=== PATIENT | female | born 1965 | race Caucasian/White ===

== ENCOUNTER 2022-08-14 09:33 | Outpatient (OUT) | payer OTHER, SELFPAY ==
--- NOTE | 2022-08-14 09:48 | MM_ITS ---
Patient: KATHLEEN MOSS Exam Date: 08/14/2022 : 1965 Gender:F Ordering : DR JAYDA MARQUEZ M.D. Admission #: [id number] Family : Order #: [id number] CLICK HERE TO VIEW EXAM RADIOLOGY REPORT PROCEDURE: MM TOMOSYNTHESIS SCREENING BI COMPARISON: MG MAMM SCREEN [facility] W CAD, 09/05/2019. MG MAMM SCREEN 3D [place] CAD, 08/10/2021. INDICATIONS: Screening mammogram Z12.31 Calculator Name NCI Breast Cancer Risk Assessment Tool 5 Year Breast Cancer Risk 1.10% Lifetime Breast Cancer Risk 7.10% Personal Breast Cancer No Personal Ovarian Cancer No Treatments None Family Cancers Sister with melanoma cancer at age 53. LOCATION: [facility] BREAST COMPOSITION: Scattered areas fibroglandular density. FINDINGS: DIAGNOSTIC CATEGORY 2--BENIGN FINDING. NO CHANGE FROM COMPARISON. Scattered benign-appearing nodules are present. Scattered benign-appearing calcifications are present. Scattered benign-appearing lymph nodes are present. RIGHT BREAST: No significant suspicious finding. LEFT BREAST: No significant suspicious finding. RECOMMENDATIONS: ROUTINE MAMMOGRAM AND CLINICAL EVALUATION IN 12 MONTHS. PLEASE NOTE: A NORMAL MAMMOGRAM DOES NOT EXCLUDE THE POSSIBILITY OF BREAST CANCER. A CLINICALLY SUSPICIOUS PALPABLE LUMP SHOULD BE BIOPSIED. Dictated by: Ye Fragoso MD on 08/14/2022 at 12:03 Approved by: Ye Fragoso MD on 08/14/2022 at 12:06
== END 2022-08-14 09:34 ==
PROVIDERS: PCP Internal Medicine; Visit Provider Internal Medicine
DX: Z12.31 Encounter for screening mammogram for malignant neoplasm of breast (principal); Z80.8 Family history of malignant neoplasm of other organs or systems
CPT/HCPCS: 77063; 77067

== ENCOUNTER 2023-08-17 09:55 | Outpatient (OUT) | payer OTHER, SELFPAY ==
--- NOTE | 2023-08-17 09:58 | MM_ITS ---
Patient Name: KATHLEEN MOSS MR#: [id number] : 1965 Exam Date: 08/17/2023 Ordering Doctor: DR. JORDON DARLING D.O. RADIOLOGY REPORT PROCEDURE: MM TOMOSYNTHESIS SCREENING BI COMPARISON: MM TOMOSYNTHESIS SCREENING BI, 08/14/2022. MG MAMM SCREEN 3D [place] CAD, 08/10/2021. INDICATIONS: Screening Calculator Name NCI Breast Cancer Risk Assessment Tool 5 Year Breast Cancer Risk 1.20% Lifetime Breast Cancer Risk 6.90% Personal Breast Cancer No Personal Ovarian Cancer No Treatments None Family Cancers Sister with melanoma cancer at age 53. LOCATION: [facility] BREAST COMPOSITION: There are scattered areas of fibroglandular density. FINDINGS: DIAGNOSTIC CATEGORY 1--NEGATIVE. NO CHANGE FROM COMPARISON ASSESSMENT. Scattered benign-appearing nodules are present. Scattered benign-appearing calcifications are present. Scattered benign-appearing lymph nodes are present. RIGHT BREAST: No significant suspicious finding. LEFT BREAST: No significant suspicious finding. RECOMMENDATIONS: ROUTINE MAMMOGRAM AND CLINICAL EVALUATION IN 12 MONTHS. PLEASE NOTE: A NORMAL MAMMOGRAM DOES NOT EXCLUDE THE POSSIBILITY OF BREAST CANCER. A CLINICALLY SUSPICIOUS PALPABLE LUMP SHOULD BE BIOPSIED. Dictated by: Ye Fragoso MD on 08/17/2023 at 12:30 Approved by: Ye Fragoso MD on 08/17/2023 at 12:31
--- OUTSIDE RECORDS SUMMARY | 2023-08-17 10:07 | XMS_ITS | CCD ---
Author Organization [facility] Inform ion Partnership [facility] Care Team Providers Care Mineral Surveying Technician Name Role Phone TYRONE CARREON Unavailable Unavailable TYRONE CARREON Unavailable Unavailable TYRONE CARREON Unavailable Unavailable Diallo Galdamez Unavailable Unavailable Rudolph, Diallo Yanez Unavailable Unavailable Diallo Galdamez Unavailable Unavailable TYRONE CARREON Unavailable Unavailable TYRONE CARREON Primary Care Unavailable SELF, REFERRED Referring Unavailable ADA NÚÑEZ Attending Unavailable ADA NÚÑEZ Admitting Unavailable MAUREEN, DR SPANGLER Admitting Unavailable ALMA, DR MONTELONGO Primary Care Unavailable MAUREEN, DR SPANGLER Attending Unavailable DEMETRIA, DR ANN Garcia Consulting Unavailable MAUREEN, DR SPANGLER Consulting Unavailable ALMA, DR MONTELONGO Primary Care Unavailable ALMA, DR MONTELONGO Admitting Unavailable ALMA, DR MONTELONGO Attending Unavailable ALMA, DR MONTELONGO Consulting Unavailable ZIEBER, DR SALVADOR Xavier Consulting Unavailable ALMA, DR MONTELONGO Primary Care Unavailable RONAL FINLEY Consulting Unavailable TUSHAR, RONAL Admitting Unavailable TUSHAR, RONAL Attending Unavailable RAMON NGO Consulting Unavailable GRACIELA QUEVEDO Attending Unavailable GRACIELA QUEVEDO Attending Unavailable TYRONE CARREON Attending Unavailable GRACIELA QUEVEDO Attending Unavailable Tyrone Carreon MD Primary Care Provider Allergies Allergy Classification Reported Allergen(s) Allergy Type Date of Onset Reaction(s) Facility (2 sources) hydroCHLOROthiazide / Triamterene Drug Allergy 06-15-19 13 [facility] Repository (1 source) Liraglutide -Weight Management Drug Allergy 07-26-19 23 [facility] ffk environment Work Phone: Medications Current Medications Medication Drug Class(es) Dates Sig (Normalized) Sig (Original) ciprofloxacin 250 mg oral tablet (1 source) Quinolone Antimicrobial Start: 04-02-2023 End: 04-07-2023 take 1 tablet by mouth in the morning ciprofloxacin (Cipro) 250 MG tablet Indications: Acute cystitis with hematuria Take 1 tablet (250 mg) by mouth in the morning and 1 tablet (250 mg) before bedtime. Do all this for 5 days. 10 tablet 0 04/02/2023 04/07/2023 Active FLUoxetine 10 mg oral tablet (1 source) Serotonin Reuptake Inhibitor Start: 04-02-2023 End: 04-01-2024 take 1 tablet by mouth in the morning FLUoxetine (PROzac) 10 MG tablet Indications: Depressive disorder (CMS/HCC) Take 1 tablet (10 mg) by mouth in the morning. 30 tablet 11 04/02/2023 04/01/2024 Active nebivolol 5 mg oral tablet (1 source) Start: 12-26-2022 take 1 tablet by mouth in the morning nebivolol (Bystolic) 5 MG tablet Indications: Essential hypertension (CMS/HCC) Take 1 tablet (5 mg) by mouth in the morning. 30 tablet 11 12/26/2022 Active Problems Active Problems Problem Classification Problem Date Documented Date Episodic/Chronic Adjustment disorders (1 source) Adjustment disorder with anxious mood; Translations: [Adjustment disorder with anxiety] Onset: 07-25-2022 07-25-2022 Chronic Coagulation and hemorrhagic disorders (3 sources) Coagulation defect, unspecified; Translations: [Hypercoagulability state] Onset: 03-10-2021 07-25-2022 Chronic Disorders of lipid metabolism (1 source) Mixed hyperlipidemia; Translations: [Mixed hyperlipidemia] Onset: 07-25-2022 07-25-2022 Chronic Epilepsy; convulsions (1 source) Seizure disorder; Translations: [Epilepsy, unspecified, not intractable, without status epilepticus] Onset: 01-03-2023 01-03-2023 Chronic Esophageal disorders (1 source) Esophageal dysmotility; Translations: [Dyskinesia of esophagus] Onset: 07-25-2022 07-25-2022 Chronic Essential hypertension (1 source) Essential hypertension; Translations: [Essential (primary) hypertension] Onset: 07-25-2022 07-25-2022 Chronic Fluid and electrolyte disorders (1 source) Dehydration; Translations: [DEHYDRATION] Onset: 01-03-2022 Episodic Headache; including migraine (1 source) Migraine; Translations: [Migraine, unspecified, not intractable, without status migrainosus] Onset: 07-25-2022 07-25-2022 Chronic Menopausal disorders (1 source) Atrophic vaginitis; Translations: [Postmenopausal atrophic vaginitis] Onset: 07-25-2022 07-25-2022 Chronic Mood disorders (3 sources) Depressive disorder; Translations: [Depressive disorder (CMS/HCC)] Onset: 07-25-2022 04-02-2023 Chronic Other aftercare (1 source) Other detention (current) drug therapy; Translations: [OTH INFRASTRUCTURE ARCHITECT CURRENT DRUG THERAPY] Onset: 01-03-2022 Episodic Other nervous system disorders (1 source) Disorder of autonomic nervous system; Translations: [Disorder of the autonomic nervous system, unspecified] Onset: 07-25-2022 07-25-2022 Chronic Other nervous system disorders (1 source) Disorder of parasympathetic nervous system; Translations: [Disorder of the autonomic nervous system, unspecified] Onset: 07-25-2022 07-25-2022 Chronic Other nutritional; endocrine; and metabolic disorders (1 source) Obese class I; Translations: [Obesity, unspecified] Onset: 07-25-2022 07-25-2022 Chronic Residual codes; unclassified (3 sources) Disorientation, unspecified; Translations: [DISORIENTATION UNSPECIFIED] Onset: 12-31-2021 Episodic Residual codes; unclassified (1 source) Altered mental status, unspecified; Translations: [ALTERED MENTAL STATUS UNSPECIFIED] Onset: 01-03-2022 Episodic Retinal detachments; defects; vascular occlusion; and retinopathy (1 source) Retinal hemorrhage; Translations: [Retinal hemorrhage, unspecified eye] Onset: 07-25-2022 07-25-2022 Chronic Systemic lupus erythematosus and connective tissue disorders (1 source) Systemic lupus erythematosus; Translations: [Systemic lupus erythematosus, unspecified] Onset: 07-25-2022 07-25-2022 Chronic Transient cerebral ischemia (1 source) Transient cerebral ischemia; Translations: [Transient cerebral ischemic attack, unspecified] Onset: 07-25-2022 07-25-2022 Chronic Unclassified (1 source) CONTACT W/AND (SUSP) EXPOS COVID-19; Translations: [CONTACT W/AND (SUSP) EXPOS COVID-19] Onset: 03-10-2021 Urinary tract infections (1 source) Acute cystitis; Translations: [Acute cystitis with hematuria] 04-02-2023 Episodic Past or Other Problems Problem Classification Problem Date Documented Da te Episodic/Chronic Abdominal pain (1 source) Unspecified abdominal pain; Translations: [UNSPECIFIED ABDOMINAL PAIN] Onset: 03-10-2021 Episodic Coagulation and hemorrhagic disorders (1 source) Spontaneous ecchymoses; Translations: [SPONTANEOUS ECCHYMOSES] Onset: 03-10-2021 Episodic Conditions associated with dizziness or vertigo (1 source) Dizziness and giddiness; Translations: [DIZZINESS AND GIDDINESS] Onset: 03-10-2021 Episodic Diabetes mellitus without complication (1 source) Abnormal glucose tolerance test; Translations: [Other abnormal glucose] Onset: 07-25-2022 07-25-2022 Episodic Other aftercare (1 source) continuous churn buttermaker (current) use of anticoagulants; Translations: [INFRASTRUCTURE ARCHITECT CURRNT USE ANTICOAGULANTS] Onset: 03-10-2021 Episodic Other connective tissue disease (1 source) Muscle pain; Translations: [Myalgia, unspecified site] Onset: 07-25-2022 07-25-2022 Episodic Other nervous system disorders (1 source) White matter disease; Translations: [White matter disease, unspecified] Onset: 07-25-2022 07-25-2022 Episodic Other screening for suspected conditions (not mental disorders or infectious disease) (8 sources) Encounter for screening mammogram for malignant neoplasm of breast; Translations: [Abnormal coagulation profile] Onset: 03-08-2021 Episodic Residual codes; unclassified (1 source) Family history of malignant neoplasm of other organs or systems; Translations: [FAM HX MALIG NEOPLASM OTH ORGN/SYS] Onset: 08-11-2021 Episodic Residual codes; unclassified (1 source) Insomnia; Translations: [Insomnia, unspecified] Onset: 07-25-2022 07-25-2022 Episodic Residual codes; unclassified (1 source) Temporary loss of memory; Translations: [Other amnesia] Onset: 07-25-2022 07-25-2022 Episodic Residual codes; unclassified (1 source) Transient alteration of awareness; Translations: [Transient alteration of awareness] Onset: 07-25-2022 07-25-2022 Episodic Syncope (1 source) Syncope and collapse; Translations: [Syncope and collapse] Onset: 07-25-2022 07-25-2022 Episodic Results Test Name Value Interpretation Reference Range Facility Urinalysis macro (dipstick) panel (U)on 04-02-2023 Bilirubin, UA Negative Negative - 4(70) +++ mg/dL [facility] Blood, UA Positive Negative - 50 Kelvin/mcL [facility] Glucose, UA Negative Negative - 1999(110) ++++ mg/dL [facility] Ketones, UA Negative Negative - 160(16) ++++ mg/dL [facility] Leukocytes, UA Moderate Negative - 500+++ Vladislav/mcL [facility] Nitrite, UA Negative Negative - Positive [facility] pH, UA 5.0 5 - 9 [facility] e Protein, UA Negative Negative - 1999(20) ++++ mg/dL [facility] Spec Grav, UA 1.030 1 - 1.03 [facility] Urobilinogen, UA 0.2 0.2 - 12 mg/dL [facility] e CBC AUTO DIFFon 12-31-2021 BASO # 0.1 103/ul Normal 0.0-0.1 [facility] Comment on above: Performed By: #### C BC ####[facility] [address] [place], [place] [address]Dr. Che Caal Basophils/100 WBC (Bld) 0.9 % Normal 0.2-2.0 [facility] Comment on above: Performed By: #### C BC ####[facility] [address] [place], [place] [address]Dr. Che Caal EO # 0.1 103/ul Normal 0.0-0.7 [facility] Comment on above: Performed By: #### C BC ####[facility] [address] [place], [place] [address]Dr. Che Caal Eosinophils/100 WBC (Bld) 1.6 % Normal 0.9-7.0 [facility] Comment on above: Performed By: #### C BC ####[facility] [address] [place], [place] [address]Dr. Che Caal Erythrocyte distribution width (RBC) [Ratio] 13.3 % Normal 11.0-15.0 [facility] Comment on above: Performed By: #### C BC ####[facility] [address] [address]Dr. Che Caal Hematocrit (Bld) [Volume fraction] 40.4 % Normal 36.0-48.0 [facility] Comment on above: Performed By: #### C BC ####[facility] [address] [address]Dr. Che Caal Hemoglobin (Bld) [Mass/Vol] 13.1 g/dL Normal 12.0-16.0 [facility] Comment on above: Performed By: #### C BC ####[facility] [address] [place], [place] [address]Dr. Che Caal IG # 0.07 10e3/ul Critically high 0.00-0.03 [facility] Comment on above: Performed By: #### C BC ####[facility] [address] [place], [place] [address]Dr. Che Caal IG % 0.9 % Critically high 0.0-0.5 [facility] Comment on above: Performed By: #### C BC ####[facility] [address] [place], [place] [address]Dr. Nickisterling Caal LYMPH # 2.5 103/ul Normal 1.2-3.8 [facility] Comment on above: Performed By: #### C BC ####[facility] [address] [place], [place] [address]Dr. Che Caal Lymphocytes/100 WBC (Bld) 31.5 % Normal 20.5-60.0 [facility] Comment on above: Performed By: #### C BC ####[facility] [address] [place], [place] [address]Dr. Nickisterling Caal MANUAL DIFF REQ NO Normal [facility] Comment on above: Performed By: #### C BC ####[facility] [address] [place], [place] [address]Dr. Che Caal MCH (RBC) [Entitic mass] 27.2 pg Normal 26.7-34.0 [facility] Comment on above: Performed By: #### C BC ####[facility] [address] [place] [id number]. Che Ten MCHC (RBC) [Mass/Vol] 32.4 g/dL Normal 29.9-35.2 [facility] Comment on above: Performed By: #### C BC ####[facility] [address] [place] [id number]. Che Caal MCV (RBC) [Entitic vol] 84.0 fL Normal 81.0-99.0 [facility] Comment on above: Performed By: #### C BC ####[facility] [address] [place], [place] [address]Dr. Che Caal MONO # 0.7 103/ul Normal 0.3-0.8 [facility] Comment on above: Performed By: #### C BC ####[facility] [address] [place], [place] [address]Dr. Che Cala Monocytes/100 WBC (Bld) 8.3 % Normal 1.7-12.0 [facility] Comment on above: Performed By: #### C BC ####[facility] [address] [place], [place] [address]Dr. Che Caal NEUT # 4.6 103/ul Normal 1.4-6.5 [facility] Comment on above: Performed By: #### C BC ####[facility] [address] [place], [place] [address]Dr. Che Caal Neutrophils/100 WBC (Bld) 56.8 % Normal 43.0-75.0 [facility] Comment on above: Performed By: #### C BC ####[facility] [address] [place], [place] [address]Dr. Che Caal Platelet mean volume (Bld) [Entitic vol] 9.5 fL Normal 9.5-13.5 [facility] Comment on above: Performed By: #### C BC ####[facility] [address] [place], [place] [address]Dr. Che Caal PLT 125 103/ul Critically low 150-450 [facility] Comment on above: Performed By: #### C BC ####[facility] [address] [place], [place] [address]Jg. Che Caal RBC 4.81 106/ul Normal 4.20-5.40 [facility] Comment on above: Performed By: #### C BC ####[facility] [address] [place], [place] [address]Xq. Che Caal WBC 8.1 103/ul Normal 4.0-11.0 [facility] Comment on above: Performed By: #### C BC ####[facility] [address] [place], [place] [address]Pm[address] Ca[address] CT STROKE HEAD WOon 01-01-[address] STROKE HEAD WO CT HEAD WITHOUT CONTRAST. INDICATION: Slurred speech. Stroke. COMPARISON: None available for comparison TECHNIQUE: Axial CT head images from the skull base to the vertex without IV contrast were acquired. Coronal and sagittal reformats were also obtained. FINDINGS: EXTRA-AXIAL SPACE: Age-appropriate ventricles. No acute extra-axial collection. No extra-axial mass. No midline shift. CEREBRUM: There are areas of periventricular and deep white matter low-attenuation, which is nonspecific but likely reflective of chronic microvascular ischemic disease.. Chronic lacunar infarct in the caudate head. There is right temporal lobe encephalomalacia. No CT evidence of acute large territorial cortical infarct, hemorrhage or mass effect. CEREBELLUM: No focal abnormality. No CT evidence of acute infarct, hemorrhage or mass effect. BRAINSTEM: No focal abnormality. No CT evidence of acute infarct, hemorrhage or mass effect. EXTRACRANIAL STRUCTURES. The paranasal sinuses are clear. Mastoid air cells are clear. Orbits are unremarkable. No discrete pituitary mass. Intact calvarium. IMPRESSION: No CT evidence of acute territorial cortical infarct, hemorrhage or mass effect. Electronically authenticated by: RAMON NGO Date: 2021-12-31 12:59 Normal [facility] CTA HEAD WO W CONon 01-01-20 22 CTA HEAD WO W CON CTA HEAD/NECK. HISTORY: Slurred speech COMPARISON: None. TECHNIQUE: CT angiogram of the head and neck obtained after administration of 75 mL of nonionic intravenous contrast material, Isovue-300. Multiplanar and volume rendered 3-D reformats were created. NASCET criteria was used for evaluation of luminal stenosis. Approximately 100 ml Omnipaque 350 was administered intravenously. 3-D vascular images were constructed on a separate workstation. FINDINGS: THORACIC AORTA: Normal. There is a normal anatomy at the origin of the great vessels. RIGHT COMMON CAROTID ARTERY: No significant stenosis. There is medialization RIGHT EXTERNAL CAROTID ARTERY: No significant stenosis. RIGHT INTERNAL CAROTID ARTERY: No significant stenosis. LEFT COMMON CAROTID ARTERY: No significant stenosis. There is medialization LEFT EXTERNAL CAROTID ARTERY: No significant stenosis. LEFT INTERNAL CAROTID ARTERY: No significant stenosis. RIGHT VERTEBRAL ARTERY: No significant stenosis. LEFT VERTEBRAL ARTERY: No significant stenosis. NIKOLSKI OF [place]: The bilateral intracranial internal carotid arteries, anterior cerebral arteries, middle cerebral arteries and anterior and posterior communicating arteries are normal. POSTERIOR INTRACRANIAL CIRCULATION: The basilar artery and posterior cerebral arteries are patent, without stenosis or occlusion. DURAL SINUSES: Patent. No intracranial aneurysm measuring least 2 mm identified. No intracranial AVM. LUNG APICES: The lung apices are clear. SOFT TISSUES: The prevertebral soft tissues are normal. No soft tissue inflammation. OSSEOUS STRUCTURES: No acute osseous abnormality throughout the imaged axial skeleton and skull base. IMPRESSION: No high-grade or hemodynamically flow-limiting stenosis of the major arteries of the head and neck. Electronically authenticated by: RAMON NGO Date: 2021-12-31 13:52 Normal [facility] DRUG SCREEN RAPID (URINE)on 12-31-2021 AMP Negative Normal NEGATIVE [facility] Comment on above: Performed By: #### D DOTTY MORENO ERUR #### [facility] [address] [address] [address] Che Caal BAR Negative Normal NEGATIVE [facility] Comment on above: Performed By: #### D DOTTY MORENO ERUR #### [facility] [address] [id number] [address] Che Caal BUP Negative Normal NEGATIVE [facility] Comment on above: Performed By: #### D DOTTY MORENO ERUR #### [facility] [id number] Che Caal BZO Negative Normal NEGATIVE [facility] Comment on above: Performed By: #### D DOTTY MORENO ERUR #### [facility] [address] [address] [address] Che Caal KOLBY Negative Normal NEGATIVE [facility] Comment on above: Performed By: #### D DOTTY MORENO, ERUR #### [facility] [address] [address] [address] Che Caal CUT-OFFS SEE BELOW Normal [facility] Comment on above: Result Comment: AMP (Amphetamine): 500ng/mL, BAR (Barbituates): 200 ng/mL, BZO (Benzodiazepines): 150 ng/mL, BUP (Buprenorphine): 10 ng/mL, KOLBY (Cocaine): 150 ng/mL, mAMP (Methamphetamine): 500 ng/mL, MTD (Methadone): 200 ng/mL, OPI (Opiates): 100 ng/mL, OXY (Oxycodone): 100 ng/mL, PCP (Phencyclidine): 25 ng/mL, PPX (Propoxyphene): 300 ng/mL, THC (Cannabinoids): 50 ng/mL, TCA (Trycyclic Antidepressants): 300 ng/mL Performed By: #### D DOTTY MORENO, ERUR #### [facility] [address] [address] [address] Che Caal DRUG CUT HEADER DRUG CLASS TEST SYSTEM CUT-OFF CONCENTRATIONS ARE FOLLOWS: Normal [facility] Comment on above: Performed By: #### D DOTTY MORENO, ERUR #### [facility] [address] [address] [address] Che Caal mAMP Negative Normal NEGATIVE [facility] Comment on above: Performed By: #### D DOTTY MORENO, ERUR #### [facility] [address] [address] [address] Che Caal MTD Negative Normal NEGATIVE [facility] Comment on above: Performed By: #### D DOTTY MORENO, ERUR #### [facility] [address] [address] [address] Che Caal OPI Negative Normal NEGATIVE [facility] Comment on above: Performed By: #### D DOTTY MORENO, ERUR #### [facility] [address] [address] [address] Che Caal OXY Negative Normal NEGATIVE [facility] Comment on above: Performed By: #### D DOTTY MORENO, ERUR #### [facility] [address] [place] [address] Dr. Che Caal PCP Negative Normal NEGATIVE [facility] Comment on above: Performed By: #### D DTOTY MORENO, ERUR #### [facility] [address] [address] [address] Che Caal PPX Negative Normal NEGATIVE [facility] Comment on above: Performed By: #### D DOTTY MORENO, ERUR #### [facility] [address] [place] [address] Dr. Che Caal TCA Negative Normal NEGATIVE [facility] Comment on above: Performed By: #### D DOTTY MORENO, ERUR #### [facility] [address] [place] [address] Dr. Che Caal THC Negative Normal NEGATIVE [facility] Comment on above: Performed By: #### D DOTTY MORENO, ERUR #### [facility] [address] [place] [address] Dr. Che Caal ER URINE PROFILEon 2 Bilirubin Ql (U) Negative Normal NEGATIVE [facility] Comment on above: Performed By: #### D DOTTY MORENO, ERUR #### [facility] [address] [place] [address] Dr. Che Caal Clarity (U) CLEAR Normal CLEAR [facility] Comment on above: Performed By: #### D DOTTY MORENO, ERUR #### [facility] [address] [place] [address] Dr. Che Caal Color (U) LT. YELLOW Normal YELLOW [facility] Comment on above: Performed By: #### D DOTTY MORENO, ERUR #### [facility] [address] [place] [address] Dr. Che CALDWELLAHD A micrscopic examination will be performed if indicated. Normal [facility] Comment on above: Performed By: #### D DOTTY MORENO, ERUR #### [facility] [address] [address] [address] Che Caal Glucose Ql (U) Negative Normal NEGATIVE [facility] Comment on above: Performed By: #### D DOTTY MORENO, ERUR #### [facility] [address] [address] [address] Che Caal Hemoglobin Ql (U) TRACE-INTACT Abnormal NEGATIVE [facility] Comment on above: Performed By: #### D DOTTY MORENO, ERUR #### [facility] [address] [address] [address] Che Caal Ketones Ql (U) Negative Normal NEGATIVE [facility] Comment on above: Performed By: #### D DOTTY MORENO, ERUR #### [facility] [address] [address] [address] Che Caal LEUKOCYTES Negative Normal NEGATIVE [facility] Comment on above: Performed By: #### D DOTTY MORENO, ERUR #### [facility] [address] [address] [address] Che Caal Nitrite Ql (U) Negative Normal NEGATIVE [facility] Comment on above: Performed By: #### D DOTTY MORENO, ERUR #### [facility] [address] [address] [address] Che Caal pH (U) 6.0 [pH] Normal 5-9 [facility] Comment on above: Performed By: #### D DOTTY MORENO, ERUR #### [facility] [address] [address] [address] Che Caal SPEC GRAVITY <=1.005 Abnormal 1.005-<=1.025 [facility] Comment on above: Performed By: #### D DOTTY MORENO, ERUR #### [facility] [address] [address] [address] Che Caal UA PROTEIN Negative Normal NEGATIVE/ TRACE [facility] Comment on above: Performed By: #### D DOTTY MORENO, ERUR #### [facility] [address] [place] [address] Dr. Che Caal UR MICRO IND INDICATED Normal [facility] Comment on above: Performed By: #### D DOTTY MORENO, ERUR #### [facility] [address] [place] [address] Dr. Che Caal Urobilinogen Qn (U) 0.2 {Nato'U}/dL Normal 0.2 - 1. 0 [facility] Comment on above: Performed By: #### D DOTTY MORENO, ERUR #### [facility] [address] [place] [address] Dr. Che Caal POINT OF CARE GLUCOSEon Glucose [Mass/Vol] 121 mg/dL Critically high 74-106 [facility] Comment on above: Performed By: #### P OCGLUC #### [facility] [address] [place] [address] Dr. Che Caal PROF 14(COMP METB)on 022 Albumin [Mass/Vol] 3.5 g/dL Normal 3.4-5.0 [facility] Comment on above: Performed By: #### H STROMAGGY, CMP #### [facility] [address] [place] [address] Dr. Che Caal Albumin/Globulin [Mass ratio] 0.8 {ratio} Normal [facility] Comment on above: Performed By: #### H STROPN, CMP #### [facility] [address] [place] [address] Dr. Che Caal ALP [Catalytic activity/Vol] 70 U/L Normal 46-116 [facility] Comment on above: Performed By: #### H STROPN, CMP #### [facility] [address] [place] [address] Dr. Che Caal ALT [Catalytic activity/Vol] 18 U/L Normal 14-59 [facility] Comment on above: Performed By: #### H STROPN, CMP #### [facility] [address] [address] [address] Che Caal Anion gap [Moles/Vol] 10.9 mmol/L Normal [facility] Comment on above: Performed By: #### H STROPN, CMP #### [facility] [address] [address] [address] Che Caal AST [Catalytic activity/Vol] 16 U/L Normal 15-37 [facility] Comment on above: Performed By: #### H STROPN, CMP #### [facility] [address] [address] [address] Che Caal Bilirubin [Mass/Vol] 0.7 mg/dL Normal 0.2-1.0 [facility] Comment on above: Performed By: #### H STROPN, CMP #### [facility] [address] [address] [address] Che Caal Calcium [Mass/Vol] 9.0 mg/dL Normal 8.5-10.1 [facility] Comment on above: Performed By: #### H STROPN, CMP #### [facility] [address] [address] [address] Che Caal Chloride [Moles/Vol] 102 mmol/L Normal 98-107 [facility] Comment on above: Performed By: #### H STROPN, CMP #### [facility] [address] [address] [address] Che Caal CO2 [Moles/Vol] 29.2 mmol/L Normal 21.0-32.0 [facility] Comment on above: Performed By: #### H STROPN, CMP #### [facility] [address] [address] [address] Che Caal Creatinine [Mass/Vol] 1.36 mg/dL Critically high 0.55-1.02 [facility] Comment on above: Performed By: #### H STROPN, CMP #### [facility] [address] [address] [address] Che Caal EGFR-AF [place]IZEN [place] 49 mL/min/1.73m2 Critically low >=60 [facility] Comment on above: Performed By: #### H STROPN, CMP #### [facility] [address] [address] [address] Che Caal EGFR-NON AF [place]IZEN [place] 40 mL/min/1.73m2 Critically low >=60 [facility] Comment on above: Performed By: #### H STROPN, CMP #### [facility] [address] [address] [address] Che aCal Globulin (S) [Mass/Vol] 4.2 g/dL Normal [facility] Comment on above: Performed By: #### H STROPN, CMP #### [facility] [address] [address] [address] Che Caal Glucose [Mass/Vol] 113 mg/dL Critically high 74-106 [facility] Comment on above: Performed By: #### H STROPN, CMP #### [facility] [address] [place] [address] Dr. Che Caal Potassium [Moles/Vol] 4.1 mmol/L Normal 3.5-5.1 [facility] Comment on above: Performed By: #### H STROPN, CMP #### [facility] [address] [place] [address] Dr. Che Caal Protein [Mass/Vol] 7.7 g/dL Normal 6.4-8.2 [facility] Comment on above: Performed By: #### H STROPN, CMP #### [facility] [address] [place] [address] Dr. Che Caal Sodium [Moles/Vol] 138 mmol/L Normal 136-145 [facility] Comment on above: Performed By: #### H STROPN, CMP #### [facility] [address] [place] [address] Dr. Che Caal Urea nitrogen [Mass/Vol] 27.0 mg/dL Critically high 7.0-18.0 [facility] Comment on above: Performed By: #### H STROPN, CMP #### [facility] [address] [place] [address] Dr. Che Caal Urea nitrogen/Creatinine [Mass ratio] 19.9 mg/mg Normal [facility] Comment on above: Performed By: #### H MARCIAPN, CMP #### [facility] [address] [address] [address] Che Caal PROTIMEon 12-31-2021 INR Coag (PPP) [Relative time] 1.00 {INR} Normal [facility] Comment on above: Performed By: #### P TT, PT ####[facility] [address] [address]Dr[address] Che Caal INR GUIDELINES SEE BELOW Normal [facility] Comment on above: Result Comment: BERNICE RED INR: 2.0 - 3.0 CONDITIONS NOT LISTED BELOW 2.5 - 3.5 FOR PROSTHETIC HEART VALVE REPLACEMENT 2.5 - 3.5 RECURRENT THROMBOSIS Performed By: #### P TT, PT ####[facility] [address] [address] Che Caal PT Coag (PPP) [Time] 10.8 s Normal 9.0-11.6 [facility] Comment on above: Performed By: #### P TT, PT ####[facility] [address] [address] Che Caal PTTon 12-31-2021 aPTT Coag (Bld) [Time] 28.7 s Normal 22.3-36.2 [facility] Comment on above: Performed By: #### P TT, PT ####[facility] [address] [address] Che Caal TROPONIN, HIGH SENSITIVITYon 12-31-2021 HSTROP 25.3 pg/mL Normal 4.0-51.3 [facility] Comment on above: Result Comment: CUT- OFF POINTS HAVE BEEN ESTABLISHED BASED ON THE FOURTH UNIVERSAL DEFINITIONS OF MYOCARDIAL INFARCTION. THE UPPER REFERENCE LIMIT (URL) OF TROPONIN, DEFINED THE 99TH PERCENTILE OF cTnI DISTRIBUTION IN A REFERENCE POPULATION, HAS BEEN CONFIRMED THE DECISION THRESHOLD FOR [place] DIAGNOSIS. Performed By: #### H STROPN, CMP #### [facility] [address] [address] [address] Che Caal URINE MICROSCOPIC ONLYon BACTERIA NONE SEEN Normal NONE SEEN [facility] Comment on above: Performed By: #### D DOTTY MORENO, ERUR #### [facility] [address] [address] [address] Che Caal Bacteria identified Cx Nom (U) NOT INDICATED Normal [facility] Comment on above: Performed By: #### D DOTTY MORENO, ERUR #### [facility] [address] [address] [address] Che Caal CAST NONE SEEN Normal NONE SEEN [facility] Comment on above: Performed By: #### D DOTTY MORENO, ERUR #### [facility] [address] [place] [address] Dr. Che Caal Crystals LM Nom (Urine sed) NONE SEEN Normal NONE SEEN [facility] Comment on above: Performed By: #### D DOTTY MORENO, ERUR #### [facility] [address] [address] [address] Che Caal Epithelial cells LM Ql (Urine sed) FEW Abnormal NONE SEEN /RARE [facility] Comment on above: Performed By: #### D DOTTY MORENO, ERUR #### [facility] [address] [address] [address] Che Caal MUCOUS NONE SEEN Normal NONE SEEN [facility] Comment on above: Performed By: #### D DOTTY MORENO, ERUR #### [facility] [address] [address] [address] Che Caal RBC 2-5 Abnormal 0-2 [facility] Comment on above: Performed By: #### D DOTTY MORENO, ERUR #### [facility] [address] [address] [address] Che Caal WBC NONE SEEN Normal NONE SEEN [facility] Comment on above: Performed By: #### D DOTTY MORENO, ERUR #### [facility] [address] [address] [address] Che Caal XR CHEST 1 Von 12-31-2021 XR CHEST 1 V PORTABLE CHEST X-RAY . INDICATION: Slurred speech. COMPARISON: None. TECHNIQUE: Single AP portable chest radiograph. FINDINGS: TUBES AND LINES: None. LUNGS: Lungs are clear. PLEURA: No effusions or pneumothorax. HEART AND MEDIASTINUM: Within normal limits for portable technique. OSSEOUS STRUCTURES: No acute abnormality. IMPRESSION: No acute findings. Electronically authenticated by: RAMON NGO Date: 2021-12-31 13:14 Normal [facility] MG MAMM SCREEN 3D KIMBERLY CADon 08-10-2021 MG MAMM SCREEN 3D KIMBERLY CAD Patient: TRACIE MOSS Exam Date: 08/10/2021 : 1965 Gender:F Ordering : DR TYRONE CARREON M.D. Admission #: [id number] Family : Order #: [id number] CLICK HERE TO VIEW EXAM RADIOLOGY REPORT PROCEDURE: MAMMOGRAM SCREENING 3D BILATERAL CAD COMPARISON: MG MAMM SCREEN KIMBERLY W CAD, 09/05/2019. MG MAMM SCREEN KIMBERLY W CAD, 07/26/2018. INDICATIONS: Screening mammography Calculator Name NCI Breast Cancer Risk Assessment Tool 5 Year Breast Cancer Risk 1.10% Lifetime Breast Cancer Risk 7.20% Personal Breast Cancer No Personal Ovarian Cancer No Treatments None Family Cancers Sister with melanoma cancer at age 53. LOCATION: [facility] BREAST COMPOSITION: Scattered areas fibroglandular density. FINDINGS: DIAGNOSTIC CATEGORY 2--BENIGN FINDING: RIGHT BREAST: No significant suspicious finding. Scattered benign-appearing lymph nodes are present. No significant change has occurred. LEFT BREAST: No significant suspicious finding. Scattered benign-appearing lymph nodes are present. No significant change has occurred. RECOMMENDATIONS: ROUTINE MAMMOGRAM AND CLINICAL EVALUATION IN 12 MONTHS. PLEASE NOTE: A NORMAL MAMMOGRAM DOES NOT EXCLUDE THE POSSIBILITY OF BREAST CANCER. A CLINICALLY SUSPICIOUS PALPABLE LUMP SHOULD BE BIOPSIED. Dictated by: Salvador Antonio M.D. on 08/10/2021 at 11:56 Approved by: Salvador Antonio M.D. on 08/10/2021 at 12:00 Normal [facility] Hemoglobin A1Con 05-12-2021 EAG 105.41 Normal [facility] [employer] Comment on above: Performed By: #### A 1C #### [facility] [address], [place] [id number] HbA1c (Bld) [Mass fraction] 5.3 % Normal 4.0-6.0 [facility] Comment on above: Performed By: #### A 1C #### [facility] [address], [place] [id number] Microalbumin (with Creat)on 05-12-2021 mALB 18.7 mg/dL Normal [facility] Comment on above: Result Comment: mALB reference range not established. Performed By: #### m ALBC #### [facility] [address], [place] [id number] mALB/Creat Ratio 87.0 MCG/MG Normal [facility] Comment on above: Result Comment: The ADA (Diabetes Care 26:S94-S98, 2002) defines abnormalities in Albumin excretion as follows: Category Result (MCG/MG Creatinine) Normal <30 Microalbuminuria 30-299 Clinical Albuminuria > or = 300 Performed By: #### m ALBC #### [facility] [address], [place] [id number] UCREA 215 mg/dL Normal 28-217 [facility] Comment on above: Performed By: #### m ALBC #### [facility] [address], [place] [id number] Complete Blood Counton 04-14 Erythrocyte distribution width (RBC) [Ratio] 15.0 % Normal 11.0-15.0 [facility] Comment on above: Performed By: #### C BC, CMP #### [facility] [address], [place] [id number] Hematocrit (Bld) [Volume fraction] 34.0 % Low 35.0-47.0 [facility] Comment on above: Performed By: #### C BC, CMP #### [facility] [address], [place] [id number] Hemoglobin (Bld) [Mass/Vol] 10.7 g/dL Low 11.6-15.5 [facility] Comment on above: Performed By: #### C BC, CMP #### [facility] [address], [place] [id number] MCH (RBC) [Entitic mass] 27.6 pg Normal 27.0-33.0 [facility] Comment on above: Performed By: #### C BC, CMP #### [facility] [address], [place] [id number] MCHC (RBC) [Mass/Vol] 31.5 g/dL Low 32.0-36.0 [facility] Comment on above: Performed By: #### C BC, CMP #### [facility] [address], [place] [id number] MCV (RBC) [Entitic vol] 88 fL Normal 80-100 [facility] Comment on above: Performed By: #### C BC, CMP #### [facility] [address], [place] [id number] Platelet mean volume (Bld) [Entitic vol] 10.40 fL Normal 7.50-12.50 [facility] Comment on above: Performed By: #### C BC, CMP #### [facility] [address], [place] [id number] Platelets (Bld) [#/Vol] 143 10*3/uL Normal 140-400 [facility] Comment on above: Performed By: #### C BC, CMP #### [facility] [address], [place] [id number] RBC (Bld) [#/Vol] 3.88 10*6/uL Low 3.90-5.20 [facility] Comment on above: Performed By: #### C BC, CMP #### [facility] [address], [place] [id number] RDW-SD 47.5 fL Normal 37.0-50.0 [facility] Comment on above: Performed By: #### C BC, CMP #### [facility] [address], [place] [id number] WBC (Bld) [#/Vol] 5.7 10*3/uL Normal 3.8-11.0 [facility] Comment on above: Performed By: #### C BC, CMP #### [facility] [address], [place] [id number] Comprehensive Metabolic Pane ahsley 04-14-2021 Albumin [Mass/Vol] 3.9 g/dL Normal 3.6-5.1 [facility] [place] [employer] Comment on above: Performed By: #### C BC, CMP #### [facility] [address] [facility] [place] [place] [id number] Albumin/Globulin [Mass ratio] 1.4 {ratio} Normal 1.0-2.5 [facility] [employer] Comment on above: Performed By: #### C BC, CMP #### [facility] [address] [place], [place] [id number] ALP [Catalytic activity/Vol] 65 U/L Normal 35-119 [facility] [employer] Comment on above: Performed By: #### C BC, CMP #### [facility] [address] [id number] ALT [Catalytic activity/Vol] 15 U/L Normal 6-33 [facility] [employer] Comment on above: Result Comment: 01/26 Female reference range changed. Performed By: #### C BC, CMP #### [facility] [address] [facility] [place] [id number] Anion gap [Moles/Vol] 17 mmol/L Normal 12-20 [facility] [employer] Comment on above: Result Comment: Effe ctive 03/03/2019 reference range changed. Performed By: #### C BC, CMP #### [facility] [address] [facility] [place] [place] [id number] AST [Catalytic activity/Vol] 20 U/L Normal 9-34 [facility] Comment on above: Performed By: #### C BC, CMP #### [facility] [address] [facility] [place] [place] [id number] Bilirubin [Mass/Vol] 0.54 mg/dL Normal 0.30-1.20 [facility] [employer] Comment on above: Performed By: #### C BC, CMP #### [facility] [address] [place], [place] [id number] BUN/CREA 25 Ratio High 6-22 [facility] [employer] Comment on above: Performed By: #### C BC, CMP #### [facility] [address] [place] [id number] Calcium [Mass/Vol] 9.4 mg/dL Normal 8.6-10.2 [place] [employer] Comment on above: Performed By: #### C BC, CMP #### [facility] [address], [place] [id number] Chloride [Moles/Vol] 105 mmol/L Normal 98-107 [facility] Comment on above: Performed By: #### C BC, CMP #### [facility] [address], [place] [id number] CO2 [Moles/Vol] 23 mmol/L Normal 20-31 [facility] Comment on above: Performed By: #### C BC, CMP #### [facility] [address], [place] [id number] Creatinine [Mass/Vol] 1.0 mg/dL Normal 0.6-1.4 [facility] Comment on above: Performed By: #### C BC, CMP #### [facility] [address], [place] [id number] eGFRAA 71 mL/min/1.73m2 Normal >60 [facility] Comment on above: Performed By: #### C BC, CMP #### [facility] [address], [place] [id number] eGFRNAA 59 mL/min/1.73m2 Low >60 [facility] Comment on above: Performed By: #### C BC, CMP #### [facility] [address], [place] [id number] Globulin (S) [Mass/Vol] 2.8 g/dL Normal 1.9-3.7 [facility] Comment on above: Performed By: #### C BC, CMP #### [facility] [address], [place] [id number] Glucose [Mass/Vol] 90 mg/dL Normal 65-99 [facility] Comment on above: Result Comment: For FASTING Glucose --- ADA reference ranges: Normal 65-99 mg/dl Prediabetes 100-125 Diabetes >/= 126 Performed By: #### C BC, CMP #### [facility] [address], [place] [id number] Potassium [Moles/Vol] 4.5 mmol/L Normal 3.5-5.5 [facility] Comment on above: Performed By: #### C BC, CMP #### [facility] [address], [place] [id number] Protein [Mass/Vol] 6.7 g/dL Normal 6.1-8.1 [facility] [employer] Comment on above: Performed By: #### C BC, CMP #### [facility] [address], [place] [id number] Sodium [Moles/Vol] 141 mmol/L Normal 135-146 [facility] [employer] Comment on above: Performed By: #### C BC, CMP #### [facility] [address], [place] [id number] Urea nitrogen [Mass/Vol] 25 mg/dL Normal 7-25 [facility] [employer] Comment on above: Performed By: #### C BC, CMP #### [facility] [address], [place] [id number] Complete Blood Counton 03-23 Erythrocyte distribution width (RBC) [Ratio] 14.8 % Normal 11.0-15.0 [facility] [employer] Comment on above: Performed By: #### T SH reflex FT4, CMP, CBC #### [facility] [address], [place] [id number] Hematocrit (Bld) [Volume fraction] 34.0 % Low 35.0-47.0 [facility] [employer] Comment on above: Performed By: #### T SH reflex FT4, CMP, CBC #### [facility] [address], [place] [id number] Hemoglobin (Bld) [Mass/Vol] 10.5 g/dL Low 11.6-15.5 [facility] [employer] Comment on above: Performed By: #### T SH reflex FT4, CMP, CBC #### [facility] [address], [place] [id number] MCH (RBC) [Entitic mass] 26.6 pg Low 27.0-33.0 [facility] [employer] Comment on above: Performed By: #### T SH reflex FT4, CMP, CBC #### [facility] [address], [place] [id number] MCHC (RBC) [Mass/Vol] 30.9 g/dL Low 32.0-36.0 [facility] [employer] Comment on above: Performed By: #### T SH reflex FT4, CMP, CBC #### [facility] [address], [place] [id number] MCV (RBC) [Entitic vol] 86 fL Normal 80-100 [facility] Comment on above: Performed By: #### T SH reflex FT4, CMP, CBC #### [facility] [address], [place] [id number] Platelet mean volume (Bld) [Entitic vol] 8.70 fL Normal 7.50-12.50 [facility] Comment on above: Performed By: #### T SH reflex FT4, CMP, CBC #### [facility] [address], [place] [id number] Platelets (Bld) [#/Vol] 257 10*3/uL Normal 140-400 [facility] [employer] Comment on above: Performed By: #### T SH reflex FT4, CMP, CBC #### [facility] [address], [place] [id number] RBC (Bld) [#/Vol] 3.95 10*6/uL Normal 3.90-5.20 [facility] [employer] Comment on above: Performed By: #### T SH reflex FT4, CMP, CBC #### [facility] [address], [place] [id number] RDW-SD 46.8 fL Normal 37.0-50.0 [facility] [employer] Comment on above: Performed By: #### T SH reflex FT4, CMP, CBC #### [facility] [address], [place] [id number] WBC (Bld) [#/Vol] 7.8 10*3/uL Normal 3.8-11.0 [facility] [employer] Comment on above: Performed By: #### T SH reflex FT4, CMP, CBC #### [facility] [address], [place] [id number] Comprehensive Metabolic Pane [facility] 03-23-2021 Albumin [Mass/Vol] 4.1 g/dL Normal 3.6-5.[address] [facility] [employer] Comment on above: Performed By: #### T SH reflex FT4, CMP, CBC #### [facility] [address], [place] [id number] Albumin/Globulin [Mass ratio] 1.2 {ratio} Normal 1.0-2.5 [facility] Comment on above: Performed By: #### T SH reflex FT4, CMP, CBC #### [facility] [address], [place] [id number] ALP [Catalytic activity/Vol] 84 U/L Normal 35-119 [facility] Comment on above: Performed By: #### T SH reflex FT4, CMP, CBC #### [facility] [address], [place] [id number] ALT [Catalytic activity/Vol] 17 U/L Normal 6-33 [facility] Comment on above: Result Comment: 01/26 Female reference range changed. Performed By: #### T SH reflex FT4, CMP, CBC #### [facility] [address], [place] [id number] Anion gap [Moles/Vol] 20 mmol/L Normal 12-20 [facility] Comment on above: Result Comment: Effe ctive 03/03/2019 reference range changed. Performed By: #### T SH reflex FT4, CMP, CBC #### [facility] [address], [place] [id number] AST [Catalytic activity/Vol] 20 U/L Normal 9-34 [facility] Comment on above: Performed By: #### T SH reflex FT4, CMP, CBC #### [facility] [address], [place] [id number] Bilirubin [Mass/Vol] 0.69 mg/dL Normal 0.30-1.20 [facility] Comment on above: Performed By: #### T SH reflex FT4, CMP, CBC #### [facility] [address], [place] [id number] BUN/CREA 23 Ratio High 6-22 [facility] Comment on above: Performed By: #### T SH reflex FT4, CMP, CBC #### [facility] [address], [place] [id number] Calcium [Mass/Vol] 9.8 mg/dL Normal 8.6-10.2 [facility] [place] [employer] Comment on above: Performed By: #### T SH reflex FT4, CMP, CBC #### [facility] [address], [place] [id number] Chloride [Moles/Vol] 104 mmol/L Normal 98-107 [facility] Comment on above: Performed By: #### T SH reflex FT4, CMP, CBC #### [facility] [address], [place] [id number] CO2 [Moles/Vol] 21 mmol/L Normal 20-31 [facility] [employer] Comment on above: Performed By: #### T SH reflex FT4, CMP, CBC #### [facility] [address], [place] [id number] Creatinine [Mass/Vol] 1.5 mg/dL High 0.6-1.4 [facility] [employer] Comment on above: Performed By: #### T SH reflex FT4, CMP, CBC #### [facility] [address], [place] [id number] eGFRAA 44 mL/min/1.73m2 Low >60 [facility] [employer] Comment on above: Performed By: #### T SH reflex FT4, CMP, CBC #### [facility] [address], [place] [id number] eGFRNAA 36 mL/min/1.73m2 Low >60 [facility] [employer] Comment on above: Performed By: #### T SH reflex FT4, CMP, CBC #### [facility] [address], [place] [id number] Globulin (S) [Mass/Vol] 3.5 g/dL Normal 1.9-3.7 [facility] [employer] Comment on above: Performed By: #### T SH reflex FT4, CMP, CBC #### [facility] [address], [place] [id number] Glucose [Mass/Vol] 102 mg/dL High 65-99 [facility] [employer] Comment on above: Result Comment: For FASTING Glucose --- ADA reference ranges: Normal 65-99 mg/dl Prediabetes 100-125 Diabetes >/= 126 Performed By: #### T SH reflex FT4, CMP, CBC #### [facility] [address], [place] [id number] Potassium [Moles/Vol] 4.4 mmol/L Normal 3.5-5.5 [facility] Comment on above: Performed By: #### T SH reflex FT4, CMP, CBC #### [facility] [address], [place] [id number] Protein [Mass/Vol] 7.6 g/dL Normal 6.1-8.1 [facility] Comment on above: Performed By: #### T SH reflex FT4, CMP, CBC #### [facility] [address], [place] [id number] Sodium [Moles/Vol] 140 mmol/L Normal 135-146 Sarah rn [place] [employer] Comment on above: Performed By: #### T SH reflex FT4, CMP, CBC #### [facility] [address], [place] [id number] Urea nitrogen [Mass/Vol] 35 mg/dL High 7-25 [facility] Comment on above: Performed By: #### T SH reflex FT4, CMP, CBC #### [facility] [address], [place] [id number] TSH w/ Reflex to Free T4on 0 03-23-2021 TSH 3.150 uIU/mL Normal 0.400-4.500 [facility] [employer] Comment on above: Performed By: #### T SH reflex FT4, CMP, CBC #### [facility] [address], [place] [id number] BASIC METABOLIC PANELon 02-26 Calcium [Mass/Vol] 7.8 mg/dL Low 8.6-10.3 [facility] Comment on above: Order Comment: No: D o not add to previous draw Performed By: #### 4 999, 55993, 13731 #### [facility] [address] [facility] [place] [place] [address], [facility] Chloride [Moles/Vol] 102 mmol/L Normal 98-107 [facility] Comment on above: Order Comment: No: D o not add to previous draw Performed By: #### 4 1000, 61027, 62534 #### [facility] [address] [place] [address], [place] CO2 [Moles/Vol] 31 mmol/L Normal 21-31 [facility] Comment on above: Order Comment: No: D o not add to previous draw Performed By: #### 4 1000, 78172, 62720 #### [facility] [address] [place] [address], [place] Creatinine [Mass/Vol] 0.73 mg/dL Normal 0.60-1.20 [facility] Comment on above: Order Comment: No: D o not add to previous draw Performed By: #### 4 1000, 81469, 22455 #### [facility] [address] [place] [address], [place] GFR/1.73 sq M.predicted among blacks MDRD (S/P/Bld) [Vol rate/Area] mL/min/{1.73_m2} Normal >60 [facility] Comment on above: Order Comment: No: D o not add to previous draw Performed By: #### 4 1000, 87793, 57677 #### [facility] [address] [place] [address], [place] GFR/1.73 sq M.predicted among non-blacks MDRD (S/P/Bld) [Vol rate/Area] mL/min/{1.73_m2} Normal >60 [facility] Comment on above: Order Comment: No: D o not add to previous draw Performed By: #### 4 1000, 33938, 61610 #### [facility] [address] [place] [address], [place] Glucose [Mass/Vol] 99 mg/dL Normal 70-100 [facility] Comment on above: Order Comment: No: D o not add to previous draw Performed By: #### 4 1000, 13845, 23193 #### [facility] [address] [place] [address], [place] Potassium [Moles/Vol] 4.5 mmol/L Normal 3.5-5.1 [facility] Comment on above: Order Comment: No: D o not add to previous draw Performed By: #### 4 1000, 77523, [id number] #### [facility] [address] [place] [address], [place] Sodium [Moles/Vol] 137 mmol/L Normal 136-145 [facility] Comment on above: Order Comment: No: D o not add to previous draw Performed By: #### 4 1000, 45633, 48764 #### [facility] [address] [place] [address], [place] Urea nitrogen [Mass/Vol] 16 mg/dL Normal 7-25 [facility] Comment on above: Order Comment: No: D o not add to previous draw Performed By: #### 4 1000, 41437, [id number] #### [facility] [address] [place] [address], [facility] CBC COMPLETE BLOOD COUNTon 0 - Erythrocyte distribution width (RBC) [Ratio] 15.3 % High 11.5-15.0 [facility] Comment on above: Order Comment: No: D o not add to previous draw Performed By: #### 5 0103 #### [facility] [address] [place] [address], [place] Hematocrit (Bld) [Volume fraction] 26.6 % Low 36.0-45.0 [facility] Comment on above: Order Comment: No: D o not add to previous draw Performed By: #### 5 0103 #### [facility] [address] [place] [address], [place] Hemoglobin (Bld) [Mass/Vol] 8.4 g/dL Low 12.0-15.0 [facility] Comment on above: Order Comment: No: D o not add to previous draw Performed By: #### 5 0103 #### [facility] [address] [place] [address], [place] MCH (RBC) [Entitic mass] 27.4 pg Normal 27.0-33.0 [facility] Comment on above: Order Comment: No: D o not add to previous draw Performed By: #### 5 0103 #### [facility] [address] [place] [id number], [facility] MCHC (RBC) [Mass/Vol] 31.6 g/dL Low 32.0-35.0 [facility] Comment on above: Order Comment: No: D o not add to previous draw Performed By: #### 5 0103 #### [facility] [address] [place] [id number], [facility] MCV (RBC) [Entitic vol] 86.6 fL Normal 82.0-98.0 [facility] Comment on above: Order Comment: No: D o not add to previous draw Performed By: #### 5 0103 #### [facility] [address] [place] [address], [facility] Nucleated RBC/100 WBC (Bld) [Ratio] 0 % Normal 0-0 [facility] Comment on above: Order Comment: No: D o not add to previous draw Performed By: #### 5 0103 #### [facility] [address] [place] [id number], [place] PLAT CNT 288 10*3/uL Normal 150-400 [facility] Comment on above: Order Comment: No: D o not add to previous draw Performed By: #### 5 0103 #### [facility] [address] [place] [id number], [facility] RBC (Bld) [#/Vol] 3.07 10*6/uL Low 3.80-5.00 [facility] Comment on above: Order Comment: No: D o not add to previous draw Performed By: #### 5 0103 #### [facility] [address] [place] [id number], [facility] WBC (Bld) [#/Vol] 8.41 10*3/uL Normal 4.00-10.60 [facility] Comment on above: Order Comment: No: D o not add to previous draw Performed By: #### 5 0103 #### [facility] [address] [place] [address], [facility] HEMOGLOBINon 03-10-2021 Hemoglobin (Bld) [Mass/Vol] 8.5 g/dL Low 12.0-15.0 [facility] Comment on above: Order Comment: No: D o not add to previous draw Performed By: #### 9 2089 #### [facility] [address] [place] [address], [facility] Hemoglobin (Bld) [Mass/Vol] 8.1 g/dL Low 12.0-15.0 [facility] Comment on above: Order Comment: No: D o not add to previous draw Performed By: #### 5 0103 #### [facility] [address] [place] [address], [facility] MAGNESIUM BLOODon 03-10-2021 Magnesium [Mass/Vol] 2.0 mg/dL Normal 1.9-2.7 [facility] Comment on above: Order Comment: No: D o not add to previous draw Performed By: #### 4 1000, 17473, 98940 #### [facility] [address] [facility] [place] [address], [facility] PHOSPHORUS BLOODon 2 Phosphate [Mass/Vol] 2.9 mg/dL Normal 2.5-5.0 [facility] Comment on above: Order Comment: No: D o not add to previous draw Performed By: #### 5 0103 #### [facility] [address] [place] [address], [facility] PROTHROMBIN TIMEon 2 INR Coag (PPP) [Relative time] 1.18 {INR} High 0.91-1.16 [facility] Comment on above: Order Comment: No: D o not add to previous draw Result Comment: ACCC P RECOMMENDED INR FOR WARFARIN THERAPY ------ ------- CONDITION INR PROPHYLAXIS OF VENOUS THROMBOSIS 2-3 (HIGH-RISK SURGERY) TREATMENT OF VENOUS THROMBOSIS 2-3 TREATMENT OF PULMONARY EMBOLISM 2-3 PREVENTION OF SYSTEMIC EMBOLISM: 2-3 ACUTE MYOCARDIAL INFARCTION TISSUE HEART VALVES VALVULAR HEART DISEASE ATRIAL FIBRILLATION RECURRENT SYSTEMIC EMBOLISM MECHANICAL HEART VALVE 2.5-3.5 FROM: ORAL ANTICOAGULANTS. MECHANISM OF ACTION, CLINICAL EFFECTIVENESS, AND OPTIMAL THERAPEUTIC RANGE. CHEST 1995;108:231S-246S. Performed By: #### 5 6101 #### [facility] [address] PT Coag (PPP) [Time] 15.0 s High 12.3-14.8 [facility] Comment on above: Order Comment: No: D o not add to previous draw Result Comment: ALL RESULTS MUST BE INTERPRETED WITH RESPECT TO BLOOD DRAWING ARTIFACT OR DILUTION ERROR OF ANTICOAGULANT AT THE TIME OF SAMPLING. Performed By: #### 5 6101 #### [facility] [address] APTTon 03-09-2021 aPTT Coag (Bld) [Time] 39.5 s High 25.0-35.0 [facility] Comment on above: Order Comment: No: D o not add to previous draw Result Comment: ALL RESULTS MUST BE INTERPRETED WITH RESPECT TO BLOOD DRAWING ARTIFACT OR DILUTION ERROR OF ANTICOAGULANT AT THE TIME OF SAMPLING. THE APTT SHOULD NOT BE USED TO MONITOR UNFRACTIONATED HEPARIN THERAPY, THIS LABORATORY NO LONGER HAS AN ESTABLISHED THERAPEUTIC RANGE BASED ON THE APTT. IT IS RECOMMENDED THAT THE UFH - HEPARIN ASSAY (ANTI-XA ACTIVITY) BE USED FOR THIS PURPOSE. Performed By: #### 5 6101, [id number] #### [facility] [address] [place] [address], [facility] aPTT Coag (Bld) [Time] 39.3 s High 25.0-35.0 [facility] Comment on above: Order Comment: No: D o not add to previous draw Result Comment: ALL RESULTS MUST BE INTERPRETED WITH RESPECT TO BLOOD DRAWING ARTIFACT OR DILUTION ERROR OF ANTICOAGULANT AT THE TIME OF SAMPLING. THE APTT SHOULD NOT BE USED TO MONITOR UNFRACTIONATED HEPARIN THERAPY, THIS LABORATORY NO LONGER HAS AN ESTABLISHED THERAPEUTIC RANGE BASED ON THE APTT. IT IS RECOMMENDED THAT THE UFH - HEPARIN ASSAY (ANTI-XA ACTIVITY) BE USED FOR THIS PURPOSE. Performed By: #### 5 7307, 47917 #### [facility] [address] BASIC METABOLIC PANELon 02-26 Calcium [Mass/Vol] 8.1 mg/dL Low 8.6-10.3 [facility] Comment on above: Order Comment: No: D o not add to previous draw Performed By: #### 5 0103 #### [facility] [address] [place] [address], [facility] Chloride [Moles/Vol] 102 mmol/L Normal 98-107 [facility] Comment on above: Order Comment: No: D o not add to previous draw Performed By: #### 5 0103 #### [facility] [address] [place] [id number], [facility] CO2 [Moles/Vol] 28 mmol/L Normal 21-31 The [facility] Comment on above: Order Comment: No: D o not add to previous draw Performed By: #### 5 0103 #### [facility] [address] [place] [id number], [facility] Creatinine [Mass/Vol] 0.79 mg/dL Normal 0.60-1.20 [facility] Comment on above: Order Comment: No: D o not add to previous draw Performed By: #### 5 0103 #### [facility] [address] [place] [address], [place] GFR/1.73 sq M.predicted among blacks MDRD (S/P/Bld) [Vol rate/Area] mL/min/{1.73_m2} Normal >60 [facility] Comment on above: Order Comment: No: D o not add to previous draw Performed By: #### 5 0103 #### [facility] [address] [place] [address], [place] GFR/1.73 sq M.predicted among non-blacks MDRD (S/P/Bld) [Vol rate/Area] mL/min/{1.73_m2} Normal >60 [facility] Comment on above: Order Comment: No: D o not add to previous draw Performed By: #### 5 0103 #### [facility] [address] [place] [address], [place] Glucose [Mass/Vol] 95 mg/dL Normal 70-100 [facility] Comment on above: Order Comment: No: D o not add to previous draw Performed By: #### 5 0103 #### [facility] [address] [place] [address], [place] Potassium [Moles/Vol] 4.4 mmol/L Normal 3.5-5.1 [facility] Comment on above: Order Comment: No: D o not add to previous draw Performed By: #### 5 0103 #### [facility] [address] [place] [address], [place] Sodium [Moles/Vol] 136 mmol/L Normal 136-145 [facility] Comment on above: Order Comment: No: D o not add to previous draw Performed By: #### 5 0103 #### [facility] [address] [place] [address], [place] Urea nitrogen [Mass/Vol] 22 mg/dL Normal 7-25 [facility] Comment on above: Order Comment: No: D o not add to previous draw Performed By: #### 5 0103 #### [facility] [address] [place] [address], [facility] CBC W/DIFFon 03-09-2021 ABS IMM GRANS 0.5 10*3/uL High 0.0-0.2 The [facility] Comment on above: Performed By: #### 5 0103 #### [facility] [address] [place] [address], [facility] ABS NEUTROPHILS 6.4 10*3/uL Normal 1.6-7.6 The [facility] Comment on above: Performed By: #### 5 0103 #### [facility] [address] [place] [address], [facility] Basophils (Bld) [#/Vol] 0.1 10*3/uL Normal 0.0-0.2 [facility] Comment on above: Performed By: #### 5 0103 #### [facility] [address] [place] [address], [facility] Basophils/100 WBC (Bld) 0.8 % Normal 0.0-1.0 [facility] Comment on above: Performed By: #### 5 0103 #### [facility] [address] [facility] [place] [address], [facility] Eosinophils (Bld) [#/Vol] 0.2 10*3/uL Normal 0.0-0.5 [facility] Comment on above: Performed By: #### 5 0103 #### [facility] [address] [facility] [place] [place] [address], [facility] Eosinophils/100 WBC (Bld) 1.8 % Normal 0.0-6.0 [facility] Comment on above: Performed By: #### 5 0103 #### [facility] [address] [facility]. [address] Erythrocyte distribution width (RBC) [Ratio] 15.4 % High 11.5-15.0 [facility] Comment on above: Performed By: #### 5 0103 #### [facility] [address] [facility] [place] [address], [facility] Hematocrit (Bld) [Volume fraction] 27.3 % Low 36.0-45.0 [facility] Comment on above: Performed By: #### 5 0103 #### [facility] [address] [facility]. [address] Hemoglobin (Bld) [Mass/Vol] 8.7 g/dL Low 12.0-15.0 [facility] Comment on above: Performed By: #### 5 0103 #### [facility] [address] [facility] [place] [address], [facility] IMM PLATELET FRAC 2.1 % Normal 0.8-6.3 [facility] Comment on above: Performed By: #### 5 0103 #### [facility] [address] [facility]. [address] IMMATURE GRANS 4.5 % High 0.0-1.0 The [facility] Comment on above: Performed By: #### 5 0103 #### [facility] [address] [facility] [place] [address], [facility] Lymphocytes (Bld) [#/Vol] 2.1 10*3/uL Normal 1.2-4.0 [facility] Comment on above: Performed By: #### 5 0103 #### [facility] [address] [facility] [place] [address], [facility] Lymphocytes/100 WBC (Bld) 19.8 % Low 20.0-45.0 [facility] Comment on above: Performed By: #### 5 0103 #### [facility] [address] [facility] [place] [address], [facility] MCH (RBC) [Entitic mass] 27.1 pg Normal 27.0-33.0 [facility] Comment on above: Performed By: #### 5 0103 #### [facility] [address] [facility]. [address] MCHC (RBC) [Mass/Vol] 31.9 g/dL Low 32.0-35.0 [facility] Comment on above: Performed By: #### 5 0103 #### [facility] [address] [facility] [place] [address], [facility] MCV (RBC) [Entitic vol] 85.0 fL Normal 82.0-98.0 [facility] Comment on above: Performed By: #### 5 0103 #### [facility] [address] [facility] [place] [address], [facility] Monocytes (Bld) [#/Vol] 1.2 10*3/uL High 0.1-1.0 [facility] Comment on above: Performed By: #### 5 0103 #### [facility] [address] [facility] [place] [address], [facility] MONOS 11.3 % Normal 5.0-12.0 [facility] Comment on above: Performed By: #### 5 0103 #### [facility] [address] [facility]. [address] Neutrophils/100 WBC (Bld) 61.8 % Normal 40.0-72.0 [facility] Comment on above: Performed By: #### 5 0103 #### [facility] [address] [facility] [place] [address], [facility] Nucleated RBC/100 WBC (Bld) [Ratio] 0 % Normal 0-0 [facility] Comment on above: Performed By: #### 5 3 #### [facility] [address] [place] [address], [facility] PLAT CNT 284 10*3/uL Normal 150-400 The [facility] Comment on above: Performed By: #### 5 3 #### [facility] [address] [place] [address], [facility] RBC (Bld) [#/Vol] 3.21 10*6/uL Low 3.80-5.00 [facility] Comment on above: Performed By: #### 5 3 #### [facility] [address] [place] [address], [place] WBC (Bld) [#/Vol] 10.36 10*3/uL Normal 4.00-10.60 [facility] Comment on above: Performed By: #### 5 0103 #### [facility] [address] [place] [id number], [place] ABS NEUTROPHILS 8.3 10*3/uL High 1.6-7.6 The [facility] Comment on above: Order Comment: No: D o not add to previous draw Performed By: #### 5 0103 #### [facility] [address] [place] [id number], [place] Basophils (Bld) [#/Vol] 0.1 10*3/uL Normal 0.0-0.2 [facility] Comment on above: Order Comment: No: D o not add to previous draw Performed By: #### 5 3 #### [facility] [address] [place] [id number], [place] Basophils/100 WBC (Bld) 0.9 % Normal 0.0-1.0 [facility] Comment on above: Order Comment: No: D o not add to previous draw Performed By: #### 5 0103 #### [facility] [address] [facility] [place] [address], [place] Eosinophils (Bld) [#/Vol] 0.1 10*3/uL Normal 0.0-0.5 [facility] Comment on above: Order Comment: No: D o not add to previous draw Performed By: #### 5 3 #### [facility] [address] [place] [address], [facility] Eosinophils/100 WBC (Bld) 0.9 % Normal 0.0-6.0 [facility] Comment on above: Order Comment: No: D o not add to previous draw Performed By: #### 5 0103 #### [facility] [address] [place] [address], [place] Erythrocyte distribution width (RBC) [Ratio] 15.4 % High 11.5-15.0 [facility] Comment on above: Order Comment: No: D o not add to previous draw Performed By: #### 5 0103 #### [facility] [address] [place] [address], [facility] GIANT PLATELETS Present Normal The [facility] Comment on above: Order Comment: No: D o not add to previous draw Performed By: #### 5 0103 #### [facility] [address] [place] [address], [facility] Hematocrit (Bld) [Volume fraction] 27.9 % Low 36.0-45.0 [facility] Comment on above: Order Comment: No: D o not add to previous draw Performed By: #### 5 0103 #### [facility] [address] [place] [address], [facility] Hemoglobin (Bld) [Mass/Vol] 9.0 g/dL Low 12.0-15.0 [facility] Comment on above: Order Comment: No: D o not add to previous draw Performed By: #### 5 0103 #### [facility] [address] [place] [address], [facility] Lymphocytes (Bld) [#/Vol] 2.3 10*3/uL Normal 1.2-4.0 [facility] Comment on above: Order Comment: No: D o not add to previous draw Performed By: #### 5 0103 #### [facility] [address] [place] [address], [facility] Lymphocytes/100 WBC (Bld) 19.8 % Low 20.0-45.0 [facility] Comment on above: Order Comment: No: D o not add to previous draw Performed By: #### 5 0103 #### [facility] [address] [place] [address], [facility] MCH (RBC) [Entitic mass] 27.6 pg Normal 27.0-33.0 [facility] Comment on above: Order Comment: No: D o not add to previous draw Performed By: #### 5 0103 #### [facility] [address] [facility] [place] [address], [facility] MCHC (RBC) [Mass/Vol] 32.3 g/dL Normal 32.0-35.0 [facility] Comment on above: Order Comment: No: D o not add to previous draw Performed By: #### 5 0103 #### [facility] [address] [place] [id number], [facility] MCV (RBC) [Entitic vol] 85.6 fL Normal 82.0-98.0 [facility] Comment on above: Order Comment: No: D o not add to previous draw Performed By: #### 5 0103 #### [facility] [address] [facility] [place] [address], [facility] Monocytes (Bld) [#/Vol] 0.6 10*3/uL Normal 0.1-1.0 [facility] Comment on above: Order Comment: No: D o not add to previous draw Performed By: #### 5 0103 #### [facility] [address] [facility] [place] [address], [facility] MONOS 5.4 % Normal 5.0-12.0 [facility] Comment on above: Order Comment: No: D o not add to previous draw Performed By: #### 5 0103 #### [facility] [address] [facility] [place] [place] [address], [facility] MYELOS 0.9 % High 0.0-0.0 [facility] Comment on above: Order Comment: No: D o not add to previous draw Performed By: #### 5 0103 #### [facility] [address] [place] [address], [facility] Neutrophils/100 WBC (Bld) 72.1 % High 40.0-72.0 [facility] Comment on above: Order Comment: No: D o not add to previous draw Performed By: #### 5 0103 #### [facility] [address] [place] [id number], [facility] Nucleated RBC/100 WBC (Bld) [Ratio] 0 % Normal 0-0 [facility] Comment on above: Order Comment: No: D o not add to previous draw Performed By: #### 5 0103 #### [facility] [address] [facility] [place] [address], [facility] PLAT CNT 284 10*3/uL Normal 150-400 [facility] Comment on above: Order Comment: No: D o not add to previous draw Performed By: #### 5 0103 #### [facility] [address] [facility] [place] [id number], [facility] RBC (Bld) [#/Vol] 3.26 10*6/uL Low 3.80-5.00 [facility] Comment on above: Order Comment: No: D o not add to previous draw Performed By: #### 5 0103 #### [facility] [address] [place] [address], [place] WBC (Bld) [#/Vol] 11.56 10*3/uL High 4.00-10.60 [facility] Comment on above: Order Comment: No: D o not add to previous draw Performed By: #### 5 0103 #### [facility] [address] [place] [address], [place] HEMATOCRITon 03-09-2021 Hematocrit (Bld) [Volume fraction] 28.4 % Low 36.0-45.0 [facility] Comment on above: Order Comment: No: D o not add to previous draw Performed By: #### 5 0103 #### [facility] [address] [place] [address], [facility] HEMOGLOBINon 03-09-2021 Hemoglobin (Bld) [Mass/Vol] 8.8 g/dL Low 12.0-15.0 [facility] Comment on above: Order Comment: No: D o not add to previous draw Performed By: #### 5 0103 #### [facility] [address] [place] [id number], [facility] Hemoglobin (Bld) [Mass/Vol] 9.2 g/dL Low 12.0-15.0 [facility] Comment on above: Order Comment: No: D o not add to previous draw Performed By: #### 5 0103 #### [facility] [address] [place] [address], [facility] LIVER BATTERYon 03-09-2021 Albumin [Mass/Vol] 3.1 g/dL Low 3.5-5.7 [facility] Comment on above: Order Comment: No: D o not add to previous draw Performed By: #### 5 0103 #### [facility] [address] [place] [address], [facility] ALKALINE PHOSPH 44 IU/L Normal 34-104 [facility] Comment on above: Order Comment: No: D o not add to previous draw Performed By: #### 5 0103 #### [facility] [address] [place] [address], [facility] ALT [Catalytic activity/Vol] 12 U/L Normal 7-52 [facility] Comment on above: Order Comment: No: D o not add to previous draw Performed By: #### [id number] #### [facility] [address] [place] [address], [facility] AST [Catalytic activity/Vol] 15 U/L Normal 13-39 [facility] Comment on above: Order Comment: No: D o not add to previous draw Performed By: #### [id number] #### [facility] [address] [place] [address], [place] Bilirubin [Mass/Vol] 1.6 mg/dL High 0.3-1.0 [facility] Comment on above: Order Comment: No: D o not add to previous draw Performed By: #### 5 [id number] #### [facility] [address] [place] [address], [facility] Bilirubin.direct [Mass/Vol] 0.3 mg/dL High 0.0-0.2 [facility] Comment on above: Order Comment: No: D o not add to previous draw Performed By: #### 5 0103 #### [facility] [address] [place] [address], [facility] Protein [Mass/Vol] 5.6 g/dL Low 6.0-8.3 [facility] Comment on above: Order Comment: No: D o not add to previous draw Performed By: #### 5 0103 #### [facility] [address] [place] [address], [facility] MAGNESIUM BLOODon 03-09-2021 Magnesium [Mass/Vol] 1.8 mg/dL Low 1.9-2.7 [facility] Comment on above: Order Comment: No: D o not add to previous draw Performed By: #### 5 0103 #### [facility] [address] [place] [address], [facility] PHOSPHORUS BLOODon Phosphate [Mass/Vol] 3.3 mg/dL Normal 2.5-5.0 [facility] Comment on above: Order Comment: No: D o not add to previous draw Performed By: #### 5 0103 #### [facility] [address] [place] [address] PORTABLE CHEST 1 VIEWon 02-26 PORTABLE CHEST 1 VIEW [facility] Department of Radiology [address] [place] [id number] Patient Name: TRACIE MOSS : 1965 Sex: F Age: Race: White Pt. Location: [id number] Patient Status: I Ordered Date: 03/09/2021 6:45:00 PM Completed Date: 03/09/2021 09:03 PM Requesting Provider: MICHAEL EDGAR Attending Provider: ADA NÚÑEZ Report Copy To: Signs & Symptoms: Shortness of Breath History: Comments: evaluate for Pneumonia Exam: PORTABLE CHEST 1 VIEW PORTABLE CHEST 1 VIEW CLINICAL INFORMATION: shortness of breath and cough. Shortness of Breath. IMPRESSION: Single view of the chest with no comparison. Bibasilar airspace opacifications right greater than left which could relate to atelectasis, pneumonia, or aspiration. No effusions. Normal cardiomediastinal silhouette. Calcified mediastinal lymph nodes. Electronically signed: Mahi Champion. Transcribed by: [email or web address], User Resident: Electronically Signed by: MAHI CHAMPION @ 03/09/2021 09:10 PM Normal [facility] Comment on above: Order Comment: No: D o not add to previous draw PROTHROMBIN TIMEon INR Coag (PPP) [Relative time] 1.19 {INR} High 0.91-1.16 [facility] Comment on above: Order Comment: No: D o not add to previous draw Result Comment: [facility] P RECOMMENDED INR FOR WARFARIN THERAPY ------ ------- CONDITION INR PROPHYLAXIS OF VENOUS THROMBOSIS 2-3 (HIGH-RISK SURGERY) TREATMENT OF VENOUS THROMBOSIS 2-3 TREATMENT OF PULMONARY EMBOLISM 2-3 PREVENTION OF SYSTEMIC EMBOLISM: 2-3 ACUTE MYOCARDIAL INFARCTION TISSUE HEART VALVES VALVULAR HEART DISEASE ATRIAL FIBRILLATION RECURRENT SYSTEMIC EMBOLISM MECHANICAL HEART VALVE 2.5-3.5 FROM: ORAL ANTICOAGULANTS. MECHANISM OF ACTION, CLINICAL EFFECTIVENESS, AND OPTIMAL THERAPEUTIC RANGE. CHEST 1995;108:231S-246S. Performed By: #### 5 6101, [id number] #### [facility] [address] [place] [address], [facility] PT Coag (PPP) [Time] 15.1 s High 12.3-14.8 [facility] Comment on above: Order Comment: No: D o not add to previous draw Result Comment: ALL RESULTS MUST BE INTERPRETED WITH RESPECT TO BLOOD DRAWING ARTIFACT OR DILUTION ERROR OF ANTICOAGULANT AT THE TIME OF SAMPLING. Performed By: #### 5 6101, [id number] #### [facility] [address] [place] [address], [place] INR Coag (PPP) [Relative time] 1.23 {INR} High 0.91-1.16 [facility] Comment on above: Order Comment: No: D o not add to previous draw Result Comment: [facility] P RECOMMENDED INR FOR WARFARIN THERAPY ------ ------- CONDITION INR PROPHYLAXIS OF VENOUS THROMBOSIS 2-3 (HIGH-RISK SURGERY) TREATMENT OF VENOUS THROMBOSIS 2-3 TREATMENT OF PULMONARY EMBOLISM 2-3 PREVENTION OF SYSTEMIC EMBOLISM: 2-3 ACUTE MYOCARDIAL INFARCTION TISSUE HEART VALVES VALVULAR HEART DISEASE ATRIAL FIBRILLATION RECURRENT SYSTEMIC EMBOLISM MECHANICAL HEART VALVE 2.5-3.5 FROM: ORAL ANTICOAGULANTS. MECHANISM OF ACTION, CLINICAL EFFECTIVENESS, AND OPTIMAL THERAPEUTIC RANGE. CHEST 1995;108:231S-246S. Performed By: #### 5 7307, [id number] #### [facility] [employer] [address] PT Coag (PPP) [Time] 15.5 s High 12.3-14.8 [facility] Comment on above: Order Comment: No: D o not add to previous draw Result Comment: ALL RESULTS MUST BE INTERPRETED WITH RESPECT TO BLOOD DRAWING ARTIFACT OR DILUTION ERROR OF ANTICOAGULANT AT THE TIME OF SAMPLING. Performed By: #### 5 7307, 07707 #### [facility] [address] APTTon 03-08-2021 aPTT Coag (Bld) [Time] 39.5 s High 25.0-35.0 [facility] Comment on above: Result Comment: ALL RESULTS MUST BE INTERPRETED WITH RESPECT TO BLOOD DRAWING ARTIFACT OR DILUTION ERROR OF ANTICOAGULANT AT THE TIME OF SAMPLING. THE APTT SHOULD NOT BE USED TO MONITOR UNFRACTIONATED HEPARIN THERAPY, THIS LABORATORY NO LONGER HAS AN ESTABLISHED THERAPEUTIC RANGE BASED ON THE APTT. IT IS RECOMMENDED THAT THE UFH - HEPARIN ASSAY (ANTI-XA ACTIVITY) BE USED FOR THIS PURPOSE. Performed By: #### 5 0103 #### [facility] [address] [place] [address], [facility] CBC W MANUAL DIFFon 03-08-19 22 ATYPICAL LYMPH # 0.13 103/ul Normal [facility] Comment on above: Performed By: #### C CANDACE ####[facility] [address] [place] [address]Dr. Che Ten ATYPICAL LYMPH % 1 % Normal [facility] Comment on above: Performed By: #### C BCMAN ####[facility] [address] [place] [id number]. Che Caal BAND # 0.4 103/ul Critically high 0.0-0.3 [facility] Comment on above: Performed By: #### C BCMARYCHUY ####[facility] [address] [place] [address]Dr. Che Caal BAND % 3 % Normal 0-5 [facility] Comment on above: Performed By: #### C CANDACE ####[facility] [address] [place], [place] [address]Dr. Che Caal BASOM # 0.00 103/ul Normal 0.00-0.10 [facility] Comment on above: Performed By: #### C CANDACE ####[facility] [address]omeq[address] [place] [address]Dr. Che Caal BASOM % 0.0 % Critically low 0.2-2.0 [facility] Comment on above: Performed By: #### C CANDACE ####[facility] [address] [place] [address]Dr. Che Caal BLAST # Normal [facility] Comment on above: Performed By: #### C CANDACE ####[facility] [address] [place] [address]Dr. Che Caal BLAST % Normal [facility] Comment on above: Performed By: #### C CANDACE ####[facility] [address] [place], [place] [address]Dr. Che Caal CORRECTED WBC Normal 4.0-11.0 [facility] Comment on above: Performed By: #### C CANDACE ####[facility] [address] [place], [place] [address]DrJeff Caal EOS # 0.25 103/ul Normal 0.00-0.70 [facility] Comment on above: Performed By: #### C CANDACE ####[facility] [address] [place] [id number]. Che Caal EOS% 2.0 % Normal 0.9-7.0 [facility] Comment on above: Performed By: #### C CANDACE ####[facility] [address] [place] [id number]. Che Caal HCT 34.3 % Critically low 36.0-48.0 [facility] Comment on above: Performed By: #### C CANDACE ####[facility] [address] [place] [id number]. Che Caal HGB 10.9 g/dl Critically low 12.0-16.0 [facility] Comment on above: Performed By: #### Kyle MARIA ####[facility] [address] [place] [id number]. Che Caal LYMPHM # 3.05 103/ul Normal 1.20-3.80 [facility] Comment on above: Performed By: #### Kyle MARIA ####[facility] [address]ks[address] [place] [address]Dr. Che Caal LYMPHM% 24.0 % Normal 20.5-60.0 [facility] Comment on above: Performed By: #### Kyle MARIA ####[facility] [address] [place] [address]Dr. Che Caal MCH 27.0 pg Normal 26.7-34.0 [facility] Comment on above: Performed By: #### C CANDACE ####[facility] [address] [place] [id number]. Che Caal MCHC 31.8 g/dl Normal 29.9-35.2 [facility] Comment on above: Performed By: #### C CANDACE ####[facility] [address] [place] [id number]. Che Caal MCV 84.9 fL Normal 81.0-99.0 [facility] Comment on above: Performed By: #### C CANDACE ####[facility] [address] [place] [phone]. Che Caal METAMYELOCYTE # Normal [facility] Comment on above: Performed By: #### C CANDACE ####[facility] [address] [place], [place] [address]Cr. Che Caal METAMYELOCYTE % Normal [facility] Comment on above: Performed By: #### C CANDACE ####[facility] [address] [place] [phone]. Che Caal MONOM# 1.27 103/ul Critically high 0.30-0.80 [facility] Comment on above: Performed By: #### C CANDACE ####[facility] [address] [place] [address]Dr. Che Caal MONOM% 10.0 % Normal 1.7-12.0 [facility] Comment on above: Performed By: #### C CANDACE ####[facility] [address] [place] [address]Dr. Che Caal MPV 9.1 fL Critically low 9.5-13.5 [facility] Comment on above: Performed By: #### C CANDACE ####[facility] [address] [place] [phone]. Che Caal MYELOCYTE # Normal [facility] Comment on above: Performed By: #### C CANDACE ####[facility] [address] [place] [phone]. Che Caal MYELOCYTE % Normal [facility] Comment on above: Performed By: #### C CANDACE ####[facility] [address] [place] [address]Dr. Che Caal NRBC Normal [facility] Comment on above: Performed By: #### C CANDACE ####[facility] [address] [place] [phone]. Che Caal PLT 328 103/ul Normal 150-450 [facility] Comment on above: Performed By: #### C PERRIMAN ####[facility] [address] [place], [place] [address]Gj. Che Caal RBC 4.04 106/ul Critically low 4.20-5.40 [facility] Comment on above: Performed By: #### Kyle MARIA ####[facility] [address]lb[address] [place], [place] [address]Ds. Che Caal RDW 15.1 % Critically high 11.0-15.0 [facility] Comment on above: Performed By: #### Kyle MARIA ####[facility] [address] [place], [place] [address]Oi. Che Caal SEG # 7.62 103/ul Critically high 1.40-6.50 [facility] Comment on above: Performed By: #### Kyle MARIA ####[facility] [address] [place], [place] [address]Zf. Che Caal SEG % 60.0 % Normal 43.0-75.0 [facility] Comment on above: Performed By: #### Kyle MARIA ####[facility] [address]rwnlbp13[address] [place], [place] [address]Fu. Che Caal WBC 12.7 103/ul Critically high 4.0-11.0 [facility] Comment on above: Performed By: #### Kyle MARIA ####[facility] [address] [place], [place] [address]Sm. Che Caal CBC W/DIFFon 03-08-2021 ABS NEUTROPHILS 11.9 10*3/uL High 1.6-7.6 [facility] Comment on above: Performed By: #### 5 0103 #### [facility] [address] [place] [address], [facility] Basophils (Bld) [#/Vol] 0.0 10*3/uL Normal 0.0-0.2 [facility] Comment on above: Performed By: #### 5 0103 #### [facility] [address] [place] [address], [place] Basophils/100 WBC (Bld) 0.0 % Normal 0.0-1.0 [facility] Comment on above: Performed By: #### 5 0103 #### [facility] [address] [place] [address], [facility] Eosinophils (Bld) [#/Vol] 0.1 10*3/uL Normal 0.0-0.5 [facility] Comment on above: Performed By: #### 5 0103 #### [facility] [address] [place] [address], [facility] Eosinophils/100 WBC (Bld) 0.9 % Normal 0.0-6.0 [facility] Comment on above: Performed By: #### 5 0103 #### [facility] [address] [place] [address], [facility] Erythrocyte distribution width (RBC) [Ratio] 15.3 % High 11.5-15.0 [facility] Comment on above: Performed By: #### 5 0103 #### [facility] [address] [place] [address], [facility] Hematocrit (Bld) [Volume fraction] 31.2 % Low 36.0-45.0 [facility] Comment on above: Performed By: #### 5 0103 #### [facility] [address] [place] [address], [facility] Hemoglobin (Bld) [Mass/Vol] 9.9 g/dL Low 12.0-15.0 [facility] Comment on above: Performed By: #### 5 0103 #### [facility] [address] [place] [address], [facility] Lymphocytes (Bld) [#/Vol] 1.6 10*3/uL Normal 1.2-4.0 [facility] Comment on above: Performed By: #### 3 #### [facility] [address] [place] [id number], [facility] Lymphocytes/100 WBC (Bld) 10.9 % Low 20.0-45.0 [facility] Comment on above: Performed By: #### 5 0103 #### [facility] [address] [facility] [place] [address], [facility] MCH (RBC) [Entitic mass] 26.9 pg Low 27.0-33.0 [facility] Comment on above: Performed By: #### 5 0103 #### [facility] [address] [facility] [place] [address], [facility] MCHC (RBC) [Mass/Vol] 31.7 g/dL Low 32.0-35.0 [facility] Comment on above: Performed By: #### 5 0103 #### [facility] [address] [facility] [place] [address], [facility] MCV (RBC) [Entitic vol] 84.8 fL Normal 82.0-98.0 [facility] Comment on above: Performed By: #### 5 0103 #### [facility] [address] [facility] [place] [address], [facility] Monocytes (Bld) [#/Vol] 0.8 10*3/uL Normal 0.1-1.0 [facility] Comment on above: Performed By: #### 5 0103 #### [facility] [address] [facility] [place] [address], [facility] MONOS 5.5 % Normal 5.0-12.0 [facility] Comment on above: Performed By: #### 5 0103 #### [facility] [address] [facility] [place] [address], [facility] Neutrophils/100 WBC (Bld) 82.7 % High 40.0-72.0 [facility] Comment on above: Performed By: #### 5 3 #### [facility] [address] [place] [address], [facility] Nucleated RBC/100 WBC (Bld) [Ratio] 0 % Normal 0-0 [facility] Comment on above: Performed By: #### 5 0103 #### [facility] [address] [place] [address], [facility] PLAT CNT 309 10*3/uL Normal 150-400 The [facility] Comment on above: Performed By: #### 5 0103 #### [facility] [address] [place] [address], [facility] RBC (Bld) [#/Vol] 3.68 10*6/uL Low 3.80-5.00 [facility] Comment on above: Performed By: #### 5 0103 #### [facility] [address] [facility] [place] [address], [facility] WBC (Bld) [#/Vol] 14.34 10*3/uL High 4.00-10.60 [facility] Comment on above: Performed By: #### 5 0103 #### [facility] [address] [place] [address], [facility] COMP METABOLIC PANELon 03-08 Albumin [Mass/Vol] 3.3 g/dL Low 3.5-5.7 [facility] Comment on above: Performed By: #### 5 102 #### [facility] [address] [place] [address], [facility] ALKALINE PHOSPH 49 IU/L Normal 34-104 [facility] Comment on above: Performed By: #### 5 3 #### [facility] [address] [place] [id number], [facility] ALT [Catalytic activity/Vol] 14 U/L Normal 7-52 [facility] Comment on above: Performed By: #### 5 3 #### [facility] [address] [place] [address], [facility] AST [Catalytic activity/Vol] 16 U/L Normal 13-39 [facility] Comment on above: Performed By: #### 5 0103 #### [facility] [address] [place] [address], [place] Bilirubin [Mass/Vol] 1.4 mg/dL High 0.3-1.0 [facility] Comment on above: Performed By: #### 5 0103 #### [facility] [address] [place] [address], [place] Calcium [Mass/Vol] 8.1 mg/dL Low 8.6-10.3 [facility] Comment on above: Performed By: #### 5 0103 #### [facility] [address] [place] [address], [place] Chloride [Moles/Vol] 105 mmol/L Normal 98-107 [facility] Comment on above: Performed By: #### 5 0103 #### [facility] [address] [place] [address], [place] CO2 [Moles/Vol] 25 mmol/L Normal 21-31 [facility] Comment on above: Performed By: #### 5 0103 #### [facility] [address] [place] [address], [place] Creatinine [Mass/Vol] 0.78 mg/dL Normal 0.60-1.20 [facility] Comment on above: Performed By: #### 5 0103 #### [facility] [address] [place] [address], [place] GFR/1.73 sq M.predicted among blacks MDRD (S/P/Bld) [Vol rate/Area] mL/min/{1.73_m2} Normal >60 [facility] Comment on above: Performed By: #### 5 0103 #### [facility] [address] [place] [address], [place] GFR/1.73 sq M.predicted among non-blacks MDRD (S/P/Bld) [Vol rate/Area] mL/min/{1.73_m2} Normal >60 [facility] Comment on above: Performed By: #### 5 0103 #### [facility] [address] [place] [address], [facility] Glucose [Mass/Vol] 107 mg/dL High 70-100 [facility] Comment on above: Performed By: #### 5 0103 #### [facility] [address] [place] [address], [facility] Potassium [Moles/Vol] 4.7 mmol/L Normal 3.5-5.1 [facility] Comment on above: Performed By: #### 5 0103 #### [facility] [address] [facility] [place] [address], [facility] Protein [Mass/Vol] 5.9 g/dL Low 6.0-8.3 [facility] Comment on above: Performed By: #### 5 0103 #### [facility] [address] [place] [address], [facility] Sodium [Moles/Vol] 137 mmol/L Normal 136-145 [facility] Comment on above: Performed By: #### 5 0103 #### [facility] [address] [place] [address], [facility] Urea nitrogen [Mass/Vol] 25 mg/dL Normal 7-25 [facility] Comment on above: Performed By: #### 5 0103 #### [facility] [address] [facility] ABD/PELV W CONon 03-08-19 CT ABD/PELV W CON EXAMINATION: CT ABD/PELV W CON, 03/08/2021 12:14 PM EST HISTORY: ABDOMINAL DISTENSION (GASEOUS) COMPARISON: None. TECHNIQUE: CT scan of the abdomen and pelvis was performed with IV contrast. CT dose reduction technique was used, including Automated Exposure Control. FINDINGS: LUNG BASES: Mild scattered bilateral patchy parenchymal opacities LIVER: No enlargement, atrophy, abnormal density, or significant focal lesion. BILIARY: No dilatation or calcification. PANCREAS: No lesion, fluid collection, ductal dilatation, or atrophy. SPLEEN: No enlargement or focal lesion. ADRENALS: No mass or enlargement. KIDNEYS: No mass, obstruction, or calcification. BOWEL/MESENTERY: No visible mass, obstruction, or bowel wall thickening. AORTA/VASCULAR: No aneurysm or dissection. RETROPERITONEUM: No mass or adenopathy. LYMPH NODES: No adenopathy. URINARY BLADDER: No visible focal wall thickening, lesion, or calculus. PELVIC ORGANS: No visible mass. Pelvic organs appropriate for patient age. ABDOMINAL WALL: There is marked enlargement and heterogeneous appearance of the rectus abdominis muscles bilaterally with areas of hyperdensity. The right rectus abdominis measures 7.7 x 6.7 cm and the left measures 6.0 x 5.3 cm. Additional subcutaneous stranding and skin thickening. Hyperdense fluid is noted on the right side outside of the rectus sheath measuring up to 2.2 cm thick with a density of 34-44 Hounsfield units likely representing hemorrhage this extends down to the level of the pubic symphysis and causes some mass effect on the adjacent urinary bladder. Some of this hemorrhage likely extends outside of the right rectus sheath and likely into the peritoneal cavity. BONES: No bony lesion or fracture. OTHER: Findings discussed with Dr. lin by telephone at 3:32 PM. IMPRESSION: Extensive hemorrhage in bilateral lower rectus abdominis muscles with active acute hemorrhage. Hemorrhage extends into the subcutaneous fat and outside of the right rectus sheath causing mass effect on the urinary bladder Electronically authenticated by: ANN AUGUSTIN Date: 2021-03-08 15:40 Normal [facility] Covid-19 PCR (CVDTBH)on 02-26 SARS-CoV-2 (COVID-19) RNA DEAN+probe Ql (Unsp spec) Not detected Normal NOT DETECTED [facility] Comment on above: Result Comment: This test is not yet approved or cleared by the [place] FDA. When there are no FDA-approved or cleared tests available, and other criteria are met, FDA can make tests available under an emergency access mechanism called an Emergency Use Authorization (EUA). The EUA for this test is supported by the [place] of Health and Human Service's (HHS's) declaration that circumstances exist to justify the emergency use of in vitro diagnostics for the detection and/or diagnosis of the virus that causes COVID-19. This EUA will remain in effect (meaning this test can be used) for the duration of the COVID-19 declaration justifying emergency of IVDs, unless it is terminated or revoked by FDA (after which the test may no longer be used). When diagnostic testing is negative, the possibility of a false negative should be considered in the context of a patient's recent exposures and the presence of clinical signs and symptoms consistent with SARS-CoV-2. Performed By: #### C [facility] #### [facility] [address] [place] [address] [address] Che Caal POC SARS COV2 ANTIGEN NEGATI VEon 03-08-2021 POC SARS COV2 ANTIGEN NEG Negative Normal NEGATIVE [facility] Comment on above: Result Comment: Nega tive results should be treated as presumptive and confirmation with a molecular assay, if necessary, for patient management, may be performed. Negative results do not rule out SARS-CoV-2 infection and not should be used as the sole basis for treatment or patient management decisions, including infection control decisions. Negative results should be considered in the context of a patient's recent exposures, history, and the presence of clinical signs and symptoms consistent with COVID-19. The [employer] COVID-19 Antigen Rapid Test Cassette is a rapid chromatographic immunoassay intended for the qualitative detection of the nucleocapsid protein antigen from SARS-CoV-2 in direct nasopharyngeal swab (ST[employer]) specimens from individuals who are suspected of COVID-19 by their healthcare provider within the first six days of symptom onset. Testing is limited to laboratories certified under the Clinical Laboratory Improvement Amendments of 1988 (CLIA), 42 U.S.C. ???263a, that meet the requirements to perform moderate complexity, high complexity, or waived tests. This test is authorized for use at the Point of Care (POC), i.e., in patient care settings operating under a CLIA Certificate of Waiver, Certificate of Compliance, or Certificate of Accreditation. Performed By: #### 5 0103 #### [facility] [address] [place] [address], [facility] PROF 14(COMP METB)on 022 Albumin [Mass/Vol] 3.1 g/dL Critically low 3.5-5.0 Th [facility] Comment on above: Performed By: #### C MP ####[facility] [address]kw[address] [place] [address]Dr. Nickisterling Ten Albumin/Globulin [Mass ratio] 0.9 {ratio} Normal [facility] Comment on above: Performed By: #### C MP ####[facility] [address]xgy[address] [place] [address]Dr. Che Ten ALP [Catalytic activity/Vol] 54 U/L Normal 38-126 [facility] Comment on above: Performed By: #### C MP ####[facility] [address] [place], [place] [address]Dr. Che Ten ALT [Catalytic activity/Vol] 22 U/L Normal 9-52 [facility] Comment on above: Performed By: #### C MP ####[facility] [address] [place], [place] [address]Dr. Che Caal Anion gap [Moles/Vol] 13.9 mmol/L Normal [facility] Comment on above: Performed By: #### C MP ####[facility] [address] [place], [place] [address]Dr. Che Ten AST [Catalytic activity/Vol] 19 U/L Normal 14-36 [facility] Comment on above: Performed By: #### C MP ####[facility] [address] [place], [place] [address]Dr. Che Caal Bilirubin [Mass/Vol] 1.0 mg/dL Normal 0.2-1.3 [facility] Comment on above: Performed By: #### C MP ####[facility] [address] [place], [place] [address]Dr. Che Caal Calcium [Mass/Vol] 8.3 mg/dL Critically low 8.4-10.2 Th [facility] Comment on above: Performed By: #### C MP ####[facility] [address] [place], [place] [address]Dr. Che Caal Chloride [Moles/Vol] 104 mmol/L Normal 98-107 [facility] Comment on above: Performed By: #### C MP ####[facility] X[address]udvty[address] [place] [address]Dr. Che Caal CO2 [Moles/Vol] 26.9 mmol/L Normal 22.0-30.0 [facility] Comment on above: Performed By: #### C MP ####[facility] Vhcjmdobls28[address] [place] [address]Dr. Che Caal Creatinine [Mass/Vol] 0.95 mg/dL Normal 0.52-1.04 [facility] Comment on above: Performed By: #### C MP ####[facility] Depabywkbd37[address] [place] [address]Dr. Che Caal EGFR-AF CITIZEN OF [place] >60 Normal >=60 [facility] Comment on above: Performed By: #### C MP ####[facility] Oxmnpgpezs[address] [place] [address]Dr. Che Caal EGFR-NON AF CITIZEN OF [place] >60 Normal >=60 [facility] Comment on above: Performed By: #### C MP ####[facility] [address]ylumunqnb[address] [place] [address]Dr. Che Caal Globulin (S) [Mass/Vol] 3.5 g/dL Normal [facility] Comment on above: Performed By: #### C MP ####[facility] [address]vkshbzemx[address] [place] [address]Dr. Che Caal Glucose [Mass/Vol] 107 mg/dL Critically high 74-106 [facility] Comment on above: Performed By: #### C MP ####[facility] Vzmtvxfibv[address] [place] [address]Dr. Che Caal Potassium [Moles/Vol] 3.8 mmol/L Normal 3.4-5.0 [facility] Comment on above: Performed By: #### C MP ####[facility] Zrcecoatmt[address] [place] [address]Dr. Che Caal Protein [Mass/Vol] 6.6 g/dL Normal 6.1-8.2 [facility] Comment on above: Performed By: #### C MP ####[facility] [address]xqxf[address]fbz[address] [place], [place] [address]Ud. Che Caal Sodium [Moles/Vol] 141 mmol/L Normal 137-145 [facility] Comment on above: Performed By: #### C MP ####[facility] Zlrlxxjlyv60[address] [place], [place] [address]Fw. Che Caal Urea nitrogen [Mass/Vol] 34.0 mg/dL Critically high 7.0-17.0 [facility] Comment on above: Performed By: #### C MP ####[facility] Umbyxnrcpm[address] [place], [place] [address]Ij. Che Caal Urea nitrogen/Creatinine [Mass ratio] 35.8 mg/mg Normal [facility] Comment on above: Performed By: #### C MP ####[facility] Hy[address]sq[address]ar6[address] [place], [place] [address]Vf. Che Caal PROTHROMBIN TIMEon 2 INR Coag (PPP) [Relative time] 1.91 {INR} High 0.91-1.16 [facility] Comment on above: Result Comment: ACCC P RECOMMENDED INR FOR WARFARIN THERAPY ------ ------- CONDITION INR PROPHYLAXIS OF VENOUS THROMBOSIS 2-3 (HIGH-RISK SURGERY) TREATMENT OF VENOUS THROMBOSIS 2-3 TREATMENT OF PULMONARY EMBOLISM 2-3 PREVENTION OF SYSTEMIC EMBOLISM: 2-3 ACUTE MYOCARDIAL INFARCTION TISSUE HEART VALVES VALVULAR HEART DISEASE ATRIAL FIBRILLATION RECURRENT SYSTEMIC EMBOLISM MECHANICAL HEART VALVE 2.5-3.5 FROM: ORAL ANTICOAGULANTS. MECHANISM OF ACTION, CLINICAL EFFECTIVENESS, AND OPTIMAL THERAPEUTIC RANGE. CHEST 1995;108:231S-246S. Performed By: #### 5 0103 #### [facility] [address] [place] [address], [facility] PT Coag (PPP) [Time] 21.8 s High 12.3-14.8 [facility] Comment on above: Result Comment: ALL RESULTS MUST BE INTERPRETED WITH RESPECT TO BLOOD DRAWING ARTIFACT OR DILUTION ERROR OF ANTICOAGULANT AT THE TIME OF SAMPLING. Performed By: #### 5 0103 #### [facility] [address] [place] [address], [facility] PROTIMEon 03-08-2021 INR Coag (PPP) [Relative time] 8.00 {INR} Critically high [facility] Comment on above: Performed By: #### P T, PTT ####[facility] X[address]fgd[address] [place] [address]Dr. Che Caal INR GUIDELINES SEE BELOW Normal [facility] Comment on above: Result Comment: BERNICE RED INR: 2.0 - 3.0 CONDITIONS NOT LISTED BELOW 2.5 - 3.5 FOR PROSTHETIC HEART VALVE REPLACEMENT 2.5 - 3.5 RECURRENT THROMBOSIS Performed By: #### P T, PTT ####[facility] [address] [place], [place] [address]Dr. Che Caal PT Coag (PPP) [Time] 86.3 s Critically high 9.0-11.6 [facility] Comment on above: Performed By: #### P T, PTT ####[facility] [address]juqt[address] [place] [id number]. Che Caal PTTon 03-08-2021 aPTT Coag (Bld) [Time] 64.6 s Critically high 22.3-36.2 [facility] Comment on above: Performed By: #### P T, PTT ####[facility] [address]echp[address] [place] [address]Dr. Che Caal TYPE AND SCREENon 03-08-2021 TYPE AND SCREEN Negative Normal [facility] Comment on above: Performed By: #### T NS ####[facility] [address]dkzd[address] [place] [address]Dr. Che Caal TSHon 06-12-2017 Thyroid stimulating hormone (TSH) 3.140 uIU/mL Normal 0.470-4.680 [facility] Comment on above: Performed By: #### T SH ####[facility] Eljjt[address]ftq[address] [place] Thyroid stimulating hormone (TSH) SEE BELOW Normal [facility] Comment on above: Result Comment: <0.3 4 UIU/ml HYPERTHYROID 0.34-5.60 UIU/ml EUTHYROID >5.60 UIU/ml HYPOTHYROID Performed By: #### T SH ####[facility] [address]zja45[address] [place], [place] [address]Ijonbr [place] Coding Summary.on 01-23-2017 Coding Summary. CODING DATE: 01/23/2017 [facility] STATUS: Home (Routine DC) PAYOR: Commercial Insurance APC DESCRIPTION 5372 Level 2 Urology and Related Services ADMIT DX: REASON FOR VISIT DX: R35.0 Frequency of micturition FINAL DX: PRINCIPAL: R35.0 Frequency of micturition SECONDARY: R32 Unspecified urinary incontinence R31.21 Asymptomatic microscopic hematuria R35.1 Nocturia Z79.01 continuous churn buttermaker (current) use of anticoagulants Z86.73 Personal history of transient ischemic attack (TIA), and cerebral infarction without residual deficits PYMT PROC APC STAT DESCRIPTION DOCTOR NAME DATE NOTE: The code number assigned matches the documented diagnosis and / or procedure in the patient's chart. However, the narrative phrase printed from the coding software may appear abbreviated, or result in slightly different terminology. Coded By: Love Arriaga Date Saved: 01/23/2017 02:48 pm Normal [facility] Vital Signs Date Time Vital Sign Value Performing Clinician Juli mccray 04-02-2023 09:54-0500 Body height 162.6 cm Tyrone Carreon MD Work Phone: [facility] 04-02-2023 09:54-0500 Body mass index (BMI) [Ratio] 36.05 kg/m2 Tyrone Carreon MD Work Phone: [facility] 04-02-2023 09:54-0500 Body weight 95.25 kg Tyrone Carreon MD Work Phone: [facility] 04-02-2023 09:54-0500 Diastolic blood pressure 78 mm[Hg] Tyrone Carreon MD Work Phone: [facility] 04-02-2023 09:54-0500 Heart rate 72 /min Tyrone Carreon MD Work Phone: [facility] 04-02-2023 09:54-0500 SaO2% (BldA) [Mass fraction] 99 % Tyrone Carreon MD Work Phone: [facility] 04-02-2023 09:54-0500 Systolic blood pressure 128 mm[Hg] Tyrone Carreon MD Work Phone: [facility] Encounters Encounter Date Encounter Type Care Provider Facility Start: 04-02-2023 End: 04-02-2023 ambulatory TYRONE CARREON Not Available Start: 04-02-2023 End: 04-02-2023 Office outpatient visit 25 minutes Tyrone Carreon MD Work Phone: [facility] Comment on above: Acute cystitis with hematuria (Primary Dx); Depressive disorder ([facility]/HCC) Start: 03-26-2023 End: 03-26-2023 ambulatory GRACIELA Ferreira NATAPRAWIRA Not Available Start: 03-08-2023 End: 03-08-2023 ambulatory GRACIELA Ferreira NATAPRAWIRA Not Available Start: 02-05-2023 End: 02-05-2023 ambulatory GRACIELA Ferreira NATAPRAWIRA Not Available Start: 12-31-2021 End: 12-31-[address] TYRONE CARREON Facility:[facility] Start: 08-10-2021 End: 08-11-[address] TYRONE CARREON Facility:[facility] Start: 03-08-2021 End: 03-10-2021 Evaluation and management of inpatient TYRONE CARREON Facility:[facility] Start: 03-08-2021 End: 03-08-[address] CRYS LIN Facility:[facility] Start: 06-12-2017 End: 06-13-2017 Ambulatory TYRONE CARREON Facility:[facility] Start: 01-10-2017 End: 01-11-2017 Ambulatory Diallo Galdamez [place] Procedures Date Procedure Procedure Detail Performing Clinician Start: 04-02-2023 Urnls dip stick/tablet rgnt non-auto w/o micrscp Tyrone Carreon MD Work Phone: Start: 03-12-2023 Mammography Tyrone Carreon MD Work Phone: Start: 07-25-2022 H/O: hysterectomy History of hysterectomy Tyrone Carreon MD Work Phone: Start: 04-26-2015 Colonoscopy Tyrone Carreon MD Work Phone: Plan of Treatment Date Care Activity Detail Author Start: 04-25-2025 Screening for malign ant neoplasm of colon [facility] Start: 03-20-2024 End: 03-20-2024 Patient encounter procedure 03/20/2024 9:45 AM EST Office Visit [facility] [address] DAVID D [facility] [address] [place] [address] Graciela Quevedo, DO [address] [facility] [address] [place] [address] [facility] Start: 03-12-2024 Screening for malign ant neoplasm of breast Mammogram [facility] Start: 06-06-2023 End: 06-06-2023 Patient encounter procedure 06/06/2023 9:00 AM EDT Office Visit [facility] [address] [facility] [address] [place] [id number] Tyrone Carreon MD [address] [facility] [address] [place] [address] [facility] Start: 10-27-2022 Influenza vaccination Influenza Vacc ine (#1) [facility] Start: 1965 Screening for malign ant neoplasm of colon [facility] Immunizations Immunization Date Immunization Notes Care Provider Fa [facility] 12-04-2018 influenza, injectabl e, quadrivalent, contains preservative Tyrone Carreon MD Work Phone: [facility] 12-04-2018 influenza virus vacc ine, unspecified formulation Tyrone Carreon MD Work Phone: [facility] 11-20-2016 seasonal influenza, intradermal, preservative free Tyrone Carreon MD Work Phone: [facility] 11-30-2015 influenza, injectabl e, quadrivalent, contains preservative Tyrone Carreon MD Work Phone: [facility] 12-14-2014 influenza, injectabl e, quadrivalent, contains preservative Tyrone Carreon MD Work Phone: [facility] Payers Date Payer Category Payer Private Health Insurance 2004 [facility] O (unspecified) SHARONA TABOR [id number] 2004-Present [address] [place] [address] O [id number] 2004 Private Health Insurance [id number] 1965 Unknown [id number] 1965 Unknown [id number] 1965 Unknown [id number] 1965 Unknown [id number] 1965 Unknown [id number] .1259 1965 Unknown [id number] .1259 1965 Unknown [id number] .1259 1965 Unknown [id number] .1259 1965 Unknown [id number] .1259 1959 Medicare [id number] 1959 Self-pay Social History Date Type Detail Facility Start: 07-25-2022 Tobacco smoking status NVIS Never sm oked tobacco [facility] Start: 07-25-2022 Tobacco use and exposure Smoke less tobacco non-user [facility] Start: 04-02-2023 Alcohol intake Ex-drinker (finding) [facility] Start: 07-25-2022 End: 04-02-2023 History of Social function [facility] Start: 07-25-2022 End: 04-02-2023 Alcohol Use Disorder Identification Test - Consumption [AUDIT-C] [facility] How often to you hav e a drink containing alcohol? Monthly or less [facility] How many standard dr inks containing alcohol do you have on a typical day? Patient does not drink [facility] How often do you hav e 6 or more drinks on 1 occasion? Never [facility] Start: 1965 Sex Assigned At Not on file [facility] History of Present illness Narrative 04-02-2023 Tyrone Carreon MD - 04/02/2023 10:00 AM EST Note Date & Type Note Facility 04-02-2023 History of Presen t illness Narrative Subjective Patient ID: Tracie Moss is a 58 y.o. female who presents for UTI, Depression, and Med Refill ([facility]olic--[facility]). Urinary Tract Infection Patient complains of burning with urination and pain in the left flank. She has had symptoms for 1 week. Patient denies fever. Patient does not have a history of recurrent UTI. Patient does not have a history of pyelonephritis. Depression Patient complains of depression. She complains of depressed mood and anxiety.Symptoms have been gradually worsening since that time. Pt was on prozac in past and worked well would like to discuss restarting medication UTI DepressionPatient presents with the following symptoms: nervousness/anxiety. Med Refill Current Outpatient Medications on File Prior to Visit Medication Sig Dispense Refill nebivolol (Bystolic) 5 MG tablet Take 1 tablet (5 mg) by mouth in the morning. 30 tablet 11 No current facility-administered medications on file prior to visit. Allergies Allergen Reactions Liraglutide -Weight Management Other Reaction(s): Constipation Social History Tobacco Use Smoking status: Never Smokeless tobacco: Never Substance Use Topics Alcohol use: Not Currently Drug use: Never Family History Problem Relation Name Age of Onset Heart disease Mother Heart disease Father Past Medical History: Diagnosis Date Abdominal hemorrhage 2021 Hiatal hernia Hyperlipidemia (CMS/HCC) Migraine (CMS/HCC) Seizure disorder, focal motor (CMS/HCC) Stroke (CMS/HCC) 2010 Past Surgical History: Procedure Laterality Date SECTION, LOW TRANSVERSE x2 COLONOSCOPY 04/26/2015 EGD HERNIA REPAIR HYSTERECTOMY 2010 Heavy bleeding, usure about ovaries Visit Vitals BP 128/78 Pulse 72 Ht 5' 4 Wt 210 lb SpO2 99% BMI 36.05 kg/m OB Status Hysterectomy Smoking Status Never BSA 2.07 m Review of Systems Genitourinary: Positive for flank pain, frequency and urgency. Psychiatric/Behavioral: Positive for depression and dysphoric mood. The patient is nervous/anxious. Objective Physical Exam Constitutional: General: She is not in acute distress. Appearance: Normal appearance. She is well-developed. HENT: Head: Normocephalic and atraumatic. Nose: Nose normal. Mouth/Throat: Mouth: Mucous membranes are moist. Pharynx: No posterior oropharyngeal erythema. Eyes: General: No scleral icterus. Extraocular Movements: Extraocular movements intact. Conjunctiva/sclera: Conjunctivae normal. Pupils: Pupils are equal, round, and reactive to light. Cardiovascular: Rate and Rhythm: Normal rate and regular rhythm. Heart sounds: Normal heart sounds. No murmur heard. Pulmonary: Effort: Pulmonary effort is normal. No respiratory distress. Breath sounds: Normal breath sounds. No wheezing, rhonchi or rales. Musculoskeletal: General: No swelling or deformity. Normal range of motion. Cervical back: Normal range of motion. Comments: Strength intact for BUE and BLE. Skin: General: Skin is warm and dry. Capillary Refill: Capillary refill takes less than 2 seconds. Findings: No rash. Neurological: General: No focal deficit present. Mental Status: She is alert and oriented to person, place, and time. Cranial Nerves: No cranial nerve deficit. Sensory: No sensory deficit. Motor: No weakness. Coordination: Coordination normal. Gait: Gait normal. Deep Tendon Reflexes: Reflexes normal. Psychiatric: Mood and Affect: Mood normal. Behavior: Behavior normal. Thought Content: Thought content normal. Judgment: Judgment normal. Assessment/Plan Diagnoses and all orders for this visit: Acute cystitis with hematuria - POCT Urinalysis dipstick - ciprofloxacin (Cipro) 250 MG tablet; Take 1 tablet (250 mg) by mouth in the morning and 1 tablet (250 mg) before bedtime. Do all this for 5 days. Depressive disorder (CMS/HCC) - FLUoxetine (PROzac) 10 MG tablet; Take 1 tablet (10 mg) by mouth in the morning. Follow up in about 2 months (around 06/01/2023) for Routine F/U. documented in this encounter [facility] Discharge summary note 03-11-2021 Note Date & Type Note Facility 03-11-2021 Note MR#: [id number] [facility] Pt. Name: Tracie Moss Admitted: 03/08/2021 Discharged: 03/10/2021 Date of : 1965 Physician: Ada Núñez M.D. DISCHARGE SUMMARY PRINCIPAL DIAGNOSIS: Bilateral lower rectus abdominus hemorrhage. SECONDARY DIAGNOSES: Elevated INR, recent COVID-19, hypertension, and history of cerebrovascular accident. HOSPITAL COURSE: The patient is a 56-year-old female, who presented to an outside hospital for complaints of feeling a pain in her abdomen after she coughed and she noticed significant bruising in her lower abdomen. She was seen at [facility] and was found to have a rectus sheath hematoma with active hemorrhage. Her INR was elevated at 8. She received vitamin K at the outside hospital and was life-flighted to [facility]. On arrival, her hemoglobin was stable at 9.9 and she was hemodynamically stable. Her INR during her hospital stay had come down to 1.1. On admission, her hemoglobin was stable at 8.4. She had a persistent cough during her hospital stay, in which she has had for the last 2-3 months post COVID. DISCHARGE INSTRUCTIONS: Her discharge instructions included no heavy lifting greater than 20 pounds for 4 weeks. She also was instructed to follow up with her Primary Care within 1 week. The patient had already called and made an appointment for herself. She also instructed to follow up with [facility] on March 21 at 1045. She was instructed to hold her Coumadin and also her lisinopril until followup with her Primary Care and to be re-evaluated for the need of her Coumadin, and which she takes for a history of a CVA. She was prescribed Robitussin DM for her cough, to take 10 mL every 6 hours as needed. She also was given hydrocodone/acetaminophen 5/325 one tablet every 6 hours as needed for pain. She also was instructed to take Tylenol. She did not want to take opiates. The patient was tolerating a regular diet. She was up moving around and ambulating without any dizziness and pain was controlled. The patient understood all discharge instructions and was discharged in stable condition. Electronically Signed by: Ada Núñez M.D. 03/24/2021 05:09 P Ada Núñez M.D. I personally saw this patient on the day of the encounter, performed the jj portion(s) of the service and participated in the management and confirm the resident's documentation. Please note there may be an additional personal documentation from or. Date Dict: 03/10/2021/06:21 P/Michael Edgar, [facility] Date Trans: 03/11/2021 05:38 A/uriah [id number] cc: Tyrone Carreon M.D. [address] [place] [address] [facility] Evaluation note Note Date & Type Note Facility Evaluation note Diagnosis Acute cystitis with hematuria- Primary Depressive disorder (CMS/HCC) Depressive disorder, not elsewhere classified documented in this encounter [facility] Summary Purpose Family History No Family History Records FoundNo Family History Records FoundNo Family History Records FoundNo Family History Records FoundNo Family History Records FoundNo Family History Records Found Advance Directives No Advanced Directives Records FoundNo Advanced Directives Records FoundNo Advanced Directives Records FoundNo Advanced Directives Records FoundNo Advanced Directives Records FoundNo Advanced Directives Records Found Additional Source Comments INFORMATION SOURCE (unrecogn ized section and content) DATE CREATED AUTHOR 08/16/2017 [facility] DATE CREATED AUTHOR AUTHOR'S ORGANIZ ATION 08/21/2017 [facility] DATE CREATED AUTHOR AUTHOR'S ORGANIZ ATION 03/25/2021 [facility] DATE CREATED AUTHOR AUTHOR'S ORGANIZ ATION 05/13/2021 [facility] dical Specialist DATE CREATED AUTHOR AUTHOR'S ORGANIZ ATION 01/19/2022 [facility] DATE CREATED AUTHOR AUTHOR'S ORGANKIRT ATSHANNAN 04/02/2023 [facility] dical Specialists EPIC Reason for Visit (unrecogniz ed section and content) Reason Comments UTI Depression Med Refill Bystolic--[facility] Teams (unrecognized sec tion and content) Mineral Surveying Technician Relationship Specialty Start Date End Date Tyrone Carreon MD [address] [facility] [address] [place] [address] PCP - General Internal Medicine 07/18/22 FOR RECORDS PERTAINING TO PATIENTS WHO ARE OR HAVE BEEN ENROLLED IN A CHEMICAL DEPENDENCY/SUBSTANCEABUSE PROGRAM, SOME INFORMATION MAY BE OMITTED. This clinical summary was aggregated from multiple sources. Caution should be exercised in using it in the provision of clinical care. This summary normalizes information from multiple sources, and as a consequence, information in this document may materially change the coding, format and clinical context of patient data. In addition, data may be omitted in some cases. CLINICAL DECISIONS SHOULD BE BASED ON THE PRIMARY CLINICAL RECORDS. [employer] provides no warranty or guarantee of the accuracy or completeness of information in this document.
== END 2023-08-17 09:56 | disposition home or self-care (01) ==
PROVIDERS: PCP Internal Medicine; Visit Provider Obstetrics & Gynecology
DX: Z12.31 Encounter for screening mammogram for malignant neoplasm of breast (principal); Z80.8 Family history of malignant neoplasm of other organs or systems
CPT/HCPCS: 77063; 77067

== ENCOUNTER 2024-08-18 09:07 | Outpatient (OUT) | payer OTHER, SELFPAY ==
--- NOTE | 2024-08-18 09:14 | MM_ITS ---
Patient Name: KATHLEEN MOSS MR#: [id number] : 1965 Exam Date: 08/18/2024 Ordering Doctor: DR. JORDON DARLING D.O. RADIOLOGY REPORT PROCEDURE: MM TOMOSYNTHESIS SCREENING BI COMPARISON: MM TOMOSYNTHESIS SCREENING BI, 08/17/2023. MM TOMOSYNTHESIS SCREENING BI, 08/14/2022. MG MAMM SCREEN 3D [place] CAD, 08/10/2021. MG MAMM KIMBERLY SCRN W CAD DIG, 01/02/2014. INDICATIONS: Screening Calculator Name NCI Breast Cancer Risk Assessment Tool 5 Year Breast Cancer Risk 1.20% Lifetime Breast Cancer Risk 6.70% Personal Breast Cancer No Personal Ovarian Cancer No Treatments None Family Cancers Sister with melanoma cancer at age 53. LOCATION: [facility] BREAST COMPOSITION: There are scattered areas of fibroglandular density. FINDINGS: DIAGNOSTIC CATEGORY 1--NEGATIVE. RIGHT BREAST: No significant suspicious finding. LEFT BREAST: No significant suspicious finding. RECOMMENDATIONS: ROUTINE MAMMOGRAM AND CLINICAL EVALUATION IN 12 MONTHS. PLEASE NOTE: A NORMAL MAMMOGRAM DOES NOT EXCLUDE THE POSSIBILITY OF BREAST CANCER. A CLINICALLY SUSPICIOUS PALPABLE LUMP SHOULD BE BIOPSIED. Dictated by: David Aviles DO on 08/18/2024 at 16:31 Approved by: David Aviles DO on 08/18/2024 at 16:32
== END 2024-08-18 09:08 | disposition home or self-care (01) ==
LOC: MAMMO 09:09
PROVIDERS: PCP Internal Medicine; Visit Provider Obstetrics & Gynecology
DX: Z12.31 Encounter for screening mammogram for malignant neoplasm of breast (principal); Z80.8 Family history of malignant neoplasm of other organs or systems
CPT/HCPCS: 77063; 77067